=== PATIENT | female | born 1990 | race Caucasian/White ===

== ENCOUNTER → 2018-07-16 | Outpatient (CLI) | payer OTHER ==
[~2018-07-16] MED LIST: FEXO30TA17 PO; FLUT16SP22 NS; PREN1TAB39 PO
--- NOTE | 2018-07-16 11:58 | Diagnostic Imaging Report ---
PROCEDURE: CT sinuses without contrast TECHNIQUE: Multiple contiguous axial images were obtained through the sinuses without the use of intravenous contrast. Coronal and sagittal reformations were then performed. INDICATION: Fibrous dysplasia of sinuses. Comparison is made study of 09/15/2016. FINDINGS: No paranasal sinus air-fluid level is identified. There is rightward deviation of the nasal septum with left annalee bullosa. The intermediate density nodule involving medial aspect of the anterior left ethmoid air cell has not significantly changed. This measures approximately 1.0 x 0.5 cm. There is no significant bone destruction. Globes are intact and there is no evidence of orbital involvement. Paranasal sinuses and mastoid air cells are otherwise unremarkable in appearance. Ostiomeatal complexes are patent. IMPRESSION: Stable nodule involving the left ethmoid bone without evidence of other sinus disease or adverse change. Dictated by: Dictated on workstation # [id number]
== END ==
LOC: RAD 10:05
PROVIDERS: ATTEND Otolaryngology Otolaryngology/Facial Plastic Surgery
DX: M85.08 Fibrous dysplasia (monostotic), other site (principal); M89.9 Disorder of bone, unspecified
CPT/HCPCS: 70486

== ENCOUNTER 2019-05-01 11:16 | Outpatient (CLI) | payer BC ==
[~2019-05-01] VITALS: Ht 157.5 cm; Wt 73.7 kg
[2019-05-01] MEDS ORDERED: MULT-192 PO (11:35)
[2019-05-01] MEDS ORDERED: LORA10TA7 PO (11:35)
[2019-05-01] MEDS ORDERED: FLUT9.9S NS (11:35)
[2019-05-01 11:37] VITALS: BP 126/82
[2019-05-01 12:12] LABS: BASOPHILS % (AUTO) 0 % (0-10); EOSINOPHILS # (AUTO) 0.1 10^3/uL (0.0-0.3); EOSINOPHILS % (AUTO) 1 % (0-10); HEMATOCRIT 40 % (35-52); HEMOGLOBIN 14.1 G/DL (11.5-16.0); LYMPHOCYTES # (AUTO) 2.2 X 10^3 (1.0-4.0); LYMPHOCYTES % (AUTO) 32 % (12-44); MEAN CORPUSCULAR HEMOGLOBIN 30 PG (25-34); MEAN CORPUSCULAR HGB CONC 35 G/DL (32-36); MEAN CORPUSCULAR VOLUME 86 FL (80-99); MEAN PLATELET VOLUME 11.4 FL (7.4-10.4); MONOCYTES # (AUTO) 0.6 X 10^3 (0.0-1.0); MONOCYTES % (AUTO) 9 % (0-12); NEUTROPHILS # (AUTO) 4.1 X 10^3 (1.8-7.8); NEUTROPHILS % (AUTO) 58 % (42-75); PLATELET COUNT 253 10^3/uL (130-400); RED CELL DISTRIBUTION WIDTH 12.7 % (10.0-14.5); WHITE BLOOD COUNT 7.1 10^3/uL (4.3-11.0)
== END 2019-05-01 16:00 | disposition home or self-care (01) ==
LOC: PREOP 11:16
PROVIDERS: ATTEND Obstetrics & Gynecology
DX: Z01.812 Encounter for preprocedural laboratory examination (principal); D06.9 Carcinoma in situ of cervix, unspecified
CPT/HCPCS: 36415; 85025; 86850; 86900; 86901; 87081

== ENCOUNTER 2019-05-06 11:18 | Day surgery (SDC) | payer BC, OTHER ==
[2019-05-06] VITALS (12 sets, daily range): BP systolic 114–132; BP diastolic 60–95
[~2019-05-06] VITALS: Ht 157.5 cm; Wt 73.7 kg
--- NOTE | 2019-05-06 09:50 | Discharge Instructions ---
Discharge Instructions Discharge Medications New, Converted or Re-Newed RX: RX on Chart Patient Instructions Patient Instructions: as directed Return to The Hospital For: as directed Activity & Diet Discharge Diet: No Restrictions Activity as Tolerated: No Orders-Post D/C & Referrals Follow Up Appt: RTC on Wednesday May 08, 2019 at 0930 for staple removal Call to make follow up appt. for patient in 4 weeks. Activity: Rest for 24 hours, than as tolerated. Wound Care: May remove Band-Aid tomorrow. Replace as desired. Keep incisions clean and dry. Wash daily with soap and water. Please call in RX to patient pharmacy. Diet: As tolerated-Clear Liquids only if nauseated. Tomorrow, may shower or tub bathe as desired. No driving for 24 hours, no alcoholic beverages for 24 hours, and nothing per vagina (no tampons, douching, or intercourse) for 8 weeks. Patient to return to the clinic as soon as possible for: Temperature greater than 101F, Severe Pain, Foul discharge from incision or vagina, Excessive Bleeding (more than a period). JESSICA MARTIN MD May 06, 2019 09:50
--- NOTE | 2019-05-06 09:51 | Progress Note-Pre Operative ---
Pre-Operative Progress Note H&P Reviewed The H&P was reviewed, patient examined and no changes noted. Date Seen by Provider: May 06, 2019 Time Seen by Provider: 12:19 Date H&P Reviewed: May 06, 2019 Time H&P Reviewed: 12:19 Pre-Operative Diagnosis: CHIVO II and CHIVO III JESSICA MARTIN MD May 06, 2019 09:51
--- NOTE | 2019-05-06 09:51 | Progress Note-Post Operative ---
Post-Operative Progess Note Surgeon (s)/Black Belt (s) Surgeon JESSICA MARTNI MD Black Belt: Cleopatra Martinez Pre-Operative Diagnosis CHIVO II and CHIVO III Post-Operative Diagnosis same with abnormal appearing appendix and with pathology pending Procedure & Operative Findings Date of Procedure 05/06/19 Procedure Performed/Findings TLH with BS and with laparoscopic appendectomy Anesthesia Type GETA Estimated Blood Loss Estimated blood loss (mL): Minimal Specimens/Packing Specimens Removed Uterus and tubes and appendix Packing: JESSICA Redd MD May 06, 2019 09:51
[~2019-05-06 11:18] MED LIST changes: +DOCU-143 PO; +FLUT9.9S NS; +IBUP-1780 PO; +LORA10TA7 PO; +MULT-192 PO; +OXYC1TAB87 PO
--- OUTSIDE RECORDS SUMMARY | 2019-05-06 11:22 | XMS REPORT ---
Author Author Migration, Doctor Organization [facility] [place] [facility] Address Unknown Phone Unavailable Care Team Providers Care Exterior Interior Specialist Name Role Phone Migration, Doctor Unavailable Unavailable PROBLEMS Type Condition ICD9-CM Code [id number] Code Onset Dates Condition Status SNOMED Code Problem Cervical paraspinal muscle spasm M62.838 Active [id number] ALLERGIES No Information ENCOUNTERS Encounter Location Date Diagnosis [facility] [address] [place] [address] Nov, Left foot pain M79.[address] [address] Sep, [facility] [address] [address] Sep, Coughing R05 and Bronchospasm with bronchitis, acute J20.[address] [address] Jul, Encounter for immunization Z23 [facility] [address] [address] Jun, Sore throat J02.9 ; Acute erythematous tonsillitis J03.90 and Skin eruption R21 [facility] [address] [place] [address] Jun, Acute maxillary sinusitis, recurrence not specified J01.00 and Nausea R11.0 [facility] [address] [place] [address] Jun, Infection of lip K13.0 and Encounter for immunization Z23 [facility] [address] [place] [address] Apr, Sore throat J02.9 and Pharyngitis, unspecified etiology J02.9 [facility] [address] [place] [id number] [place] [address] January, Sore throat J02.9 and Strep pharyngitis J02.0 [place] [address] [address] 10 Dec, 2017 Cervical paraspinal muscle spasm M62.838 [place] [address] [address] Dec, Cervical paraspinal muscle spasm M62.838 [facility] [place] [address] [address] Oct, Frequency of urination R35.0 ; Dysuria R30.0 and Acute right-sided low back pain without sciatica M54.5 [facility] [place] [address] [address] Aug, Pharyngitis due to other organism J02.8 [facility] [place] [address] [address] Apr, Lumbago with sciatica, left side M54.42 [facility] [place] [address] [address] Dec, Sore throat J02.9 and Tonsillitis J03.90 [place] [address] [address] Nov, 2017 Nexplanon removal Z30.46 and control counseling Z30.09 [facility] [place] [address] [address] May, Acute non-recurrent maxillary sinusitis J01.00 [facility] [place] [address] [address] January, Sore throat J02.9 and Fever, unspecified fever cause R50.9 [place] [address] [place] [address] Nov, [place] [address] [address] Nov, Chronic allergic rhinitis J30.9 [facility] [place] [address] [address] Nov, Pharyngitis J02.9 and Acute bacterial sinusitis J01.[address] [address] Oct, Nexplanon insertion Z30.49 [facility] [address] [address] Oct, Upper respiratory tract infection, unspecified type 465.9 ; Cough R05 and Allergic rhinitis J30.[address] [address] Oct, BMI 27.0-27.9,adult Z68.27 and Family history of diabetes mellitus Z83.[address] [address] Oct, Well woman exam Z01.419 ; BMI 27.0-27.9,adult Z68.27 ; Family history of diabetes mellitus Z83.3 ; History of one miscarriage Z87.59 ; Irregular menses N92.6 ; Environmental allergies Z91.09 ; Cough R05 ; Female hirsutism L68.0 ; Acne, unspecified L70.9 ; Encounter for counseling regarding contraception Z30.9 and History of migraine Z86.[address] [address] May, Environmental allergies V15.09 and Pharyngitis [address] [address] Apr, test positive V72.[address] [address] Apr, Positive test V72.42 [facility] [address] [facility] [id number] [address] Apr, Threatened miscarriage in early 640.03 [facility] [address] [facility] [facility] [id number] [place] [address] Apr, Positive test V72.42 [facility] [address] [facility] [facility] [id number], [place] [address] Apr, Positive test V72.42 [facility] [address] [facility] [facility] [id number], [place] [address] Apr, [facility] [address] [facility] [id number], [place] [address] Apr, test positive V72.42 [facility] [address] [address] Dec, [facility] [address] [facility] [id number], [place] [address] Dec, [facility] [address] [id number] [address] Oct, [facility] [address] [id number], [place] [address] Oct, [facility] [address] [id number], [place] [address] Oct, [facility] [address] [id number], [place] [address] Sep, [facility] [address] [facility] [id number], [place] [address] Sep, [facility] [address] [id number], [place] [address] Aug, [facility] [address] [id number], [place] [address] Aug, [facility] [address] [place] [id number] [place] [address] Jun, [facility] [address] [id number] [place] [address] Jun, [facility] [address] [id number] [place] [address] Jun, [facility] [address] [id number] [place] [address] May, [facility] [address] [id number] [place] [address] May, [facility] [address] [id number] [place] [address] Mar, [facility] [address] [id number] [place] [address] Nov, [facility] [address] [id number] [place] [address] Oct, [facility] [address] [id number] [place] [address] 30 Jun, 2012 [facility] [address] [id number] [place] [address] Jun, [facility] [address] [id number] [place] [address] Apr, [facility] [address] [id number] [place] [address] Apr, [facility] [address] [id number] [place] [address] Apr, [facility] [address] [id number] [place] [address] Apr, [facility] [address] [id number] [place] [address] Apr, [facility] [address] [id number] [place] [address] January, [facility] [address] [id number] [place] [address] January, [facility] [address] [id number] [place] [address] January, [facility] [address] [id number] [place] [address] January, [facility] [address] [id number] [place] [address] January, [facility] [address] [id number] [place] [address] Dec, [facility] [address] [id number] [place] [address] Dec, [facility] [address] [id number] [place] [address] Dec, [facility] [address] [id number] [place] [address] Dec, [facility] [address] [id number] [place] [address] Dec, [facility] [address] [id number] [place] [address] Dec, [facility] [address] [id number] [place] [address] Nov, [facility] [place] [facility] [address] [id number] [place] [address] Nov, [facility] [place] [facility] [address] [id number] [place] [address] Nov, [facility] [place] [facility] [address] [id number] [place] [address] Nov, [facility] [place] [facility] [address] [id number] [place] [address] Nov, [facility] [place] [facility] [address] [id number], [place] [address] Nov, [facility] [address], [place] [address] Nov, [facility] [address], [place] [address] Oct, [facility] [address], [place] [address] Sep, [facility] [id number] [place] [address] Sep, [facility] [id number] [place] [address] Sep, [facility] [id number] [place] [address] Aug, [facility] [id number] [place] [address] Jul, [facility] [address], [place] [address] Jul, [facility] [address], [place] [address] Jul, IMMUNIZATIONS No Known Immunizations SOCIAL HISTORY Never Assessed REASON FOR VISIT [facility] PLAN OF CARE VITAL SIGNS MEDICATIONS No Known Medications RESULTS No Results PROCEDURES No Known procedures INSTRUCTIONS MEDICATIONS ADMINISTERED No Known Medications MEDICAL (GENERAL) HISTORY Type Description Date Medical History Family history of diabetes mellitus Medical History Irregular menses Medical History Female hirsutism Medical History History of migraine Medical History Allergic rhinitis Surgical History cholecystectomy age 15 Surgical History bilateral tubal 2017 Hospitalization History Sx
--- OUTSIDE RECORDS SUMMARY | 2019-05-06 11:22 | XMS REPORT ---
Author Author Migration, Doctor Organization [facility] [address] Address Unknown Phone Unavailable Care Team Providers Care [employer] Principal Name Role Phone Migration, Doctor Unavailable Unavailable PROBLEMS Type Condition ICD9-CM Code UUR64-MK Code Onset Dates Condition Status SNOMED Code Problem Cervical paraspinal muscle spasm M62.838 Active [id number] ALLERGIES No Information ENCOUNTERS Encounter Location Date Diagnosis [facility] IN [facility]ARE [address] [place] [address] Nov, Left foot pain M79.[address] [address] Sep, [facility] WALK IN [address] [address] Sep, Coughing R05 and Bronchospasm with bronchitis, acute J20.[address] [address] Jul, Encounter for immunization Z23 [facility] WALK IN [address] [address] Jun, Sore throat J02.9 ; Acute erythematous tonsillitis J03.90 and Skin eruption R21 [facility] [address] [place] [address] Jun, Acute maxillary sinusitis, recurrence not specified J01.00 and Nausea R11.0 [facility] [address] [place] [address] Jun, Infection of lip K13.0 and Encounter for immunization Z23 [facility] [address] [place] [address] Apr, Sore throat J02.9 and Pharyngitis, unspecified etiology J02.9 [facility] [place] [id number] [place] [address] January, Sore throat J02.9 and Strep pharyngitis J02.0 [place] [address] [address] 10 Dec, 2017 Cervical paraspinal muscle spasm M62.838 [place] [address] [address] Dec, Cervical paraspinal muscle spasm M62.838 [facility] WALK [place] [address] [address] Oct, Frequency of urination R35.0 ; Dysuria R30.0 and Acute right-sided low back pain without sciatica M54.5 [facility] WALK IN [place] [address] [address] Aug, Pharyngitis due to other organism J02.8 [facility] WALK [place] [address] [address] Apr, Lumbago with sciatica, left side M54.42 [facility]ALK [facility] [place] [address] [address] Dec, Sore throat J02.9 and Tonsillitis J03.90 [place] [address] [address] Nov, 2017 Nexplanon removal Z30.46 and control counseling Z30.09 [facility] WALK IN [place] [address] [address] May, Acute non-recurrent maxillary sinusitis J01.00 [facility] WALK IN [place] [address] [address] January, Sore throat J02.9 and Fever, unspecified fever cause R50.9 [place] [address] [place] [address] Nov, [place] [address] [address] Nov, Chronic allergic rhinitis J30.9 [facility]ALK [place] [address] [address] Nov, Pharyngitis J02.9 and Acute bacterial sinusitis J01.[address] [address] Oct, Nexplanon insertion Z30.49 [facility] WALK IN [address] [address] Oct, Upper respiratory tract infection, unspecified type 465.9 ; Cough R05 and Allergic rhinitis J30.[address] [address] Oct, BMI 27.0-27.9,adult Z68.27 and Family history of diabetes mellitus Z83.[address] [address] Oct, Well woman exam Z01.419 ; BMI 27.0-27.9,adult Z68.27 ; Family history of diabetes mellitus Z83.3 ; History of one miscarriage Z87.59 ; Irregular menses N92.6 ; Environmental allergies Z91.09 ; Cough R05 ; Female hirsutism L68.0 ; Acne, unspecified L70.9 ; Encounter for counseling regarding contraception Z30.9 and History of migraine Z86.[address] [address] May, Environmental allergies V15.09 and Pharyngitis [address] [address] Apr, test positive V72.[address] [address] Apr, Positive test V72.42 [facility] [address] [facility] [id number] [address] Apr, Threatened miscarriage in early 640.03 [facility] [address] [facility] [id number] [place] [address] Apr, Positive test V72.42 [facility] [address] [facility] [id number] [address] Apr, Positive test V72.42 [facility] [address] [facility] [id number] [address] Apr, [facility] [address] [facility] [id number] [address] Apr, test positive V72.42 [facility] [address] [address] Dec, [facility] [address] [facility] [id number] [place] [address] Dec, [facility] [address] [place] [id number] [address] Oct, [facility] [address] [place] [id number] [address] Oct, [facility] [address] [place] [id number] [address] Oct, [facility] [address] [place] [id number] [address] Sep, [facility] [address] [facility] [id number] [address] Sep, [facility] [address] [place] [id number] [address] Aug, [facility] [address] [place] [id number] [address] Aug, [facility] [address] [place] [id number] [place] [address] Jun, [facility] [address] [id number] [place] [address] Jun, [facility] [address] [id number] [place] [address] Jun, [facility] [address] [id number] [place] [address] May, [facility] [address] [id number] [place] [address] May, [facility] [address] [id number] [place] [address] Mar, [facility] [address] [id number] [place] [address] Nov, [facility] [address] [id number] [place] [address] Oct, [facility] [address] [id number] [place] [address] 30 Jun, 2012 [facility] [address] [id number] [place] [address] Jun, [facility] [address] [id number] [place] [address] Apr, [facility] [address] [id number] [place] [address] Apr, [facility] [address] [id number] [place] [address] Apr, [facility] [address] [id number] [place] [address] Apr, [facility] [address] [id number] [place] [address] Apr, [facility] [address] [id number] [place] [address] January, [facility] [address] [id number] [place] [address] January, [facility] [address] [id number] [place] [address] January, [facility] [address] [id number] [place] [address] January, [facility] [address] [id number] [place] [address] January, [facility] [address] [id number] [place] [address] Dec, [facility] [address] [id number] [place] [address] Dec, [facility] [address] [id number] [place] [address] Dec, [facility] [address] [id number] [place] [address] Dec, [facility] [address] [id number] [place] [address] Dec, [facility] [address] [id number] [place] [address] Dec, [facility] [address] [id number] [place] [address] Nov, [facility] [place] [facility] [address] [id number] [place] [address] Nov, [facility] [place] [facility] [address] [id number] [place] [address] Nov, [facility] [place] [facility] [address] [id number] [place] [address] Nov, [facility] [place] [facility] [address] [id number] [place] [address] Nov, [facility] [place] [facility] [address] [id number] [address] Nov, [facility] [address]65100[place] [address] Nov, [facility] [address]00565100[place] [address] Oct, [facility] [address]65100[place] [address] Sep, [facility] [address] [place] [address] Sep, [facility] [address] [place] [address] Sep, [facility] [address] [place] [address] Aug, [facility] [address] [place] [address] Jul, [facility] [address]00565100[place] [address] Jul, [facility] [address] [address] Jul, IMMUNIZATIONS No Known Immunizations SOCIAL HISTORY Never Assessed REASON FOR VISIT [facility] [place] VITAL SIGNS MEDICATIONS No [...]
--- OUTSIDE RECORDS SUMMARY | 2019-05-06 11:22 | XMS REPORT ---
Author Author Migration, Doctor Organization [facility] Address Unknown Phone Unavailable Care Team Providers Care [employer] Brake Technician Name Role Phone Migration, Doctor Unavailable Unavailable PROBLEMS Type Condition ICD9-CM Code HRE88-WN Code Onset Dates Condition Status SNOMED Code Problem Cervical paraspinal muscle spasm M62.838 Active [id number] ALLERGIES No Information ENCOUNTERS Encounter Location Date Diagnosis [facility] IN [facility]ARE [address] [place] [address] Nov, Left foot pain M79.[address] [address] Sep, [facility] WALK IN [address] [address] Sep, Coughing R05 and Bronchospasm with bronchitis, acute J20.[address] [address] Jul, Encounter for immunization Z23 [facility] WALK IN [address] [address] Jun, Sore throat J02.9 ; Acute erythematous tonsillitis J03.90 and Skin eruption R21 [facility] [address] [place] [address] Jun, Acute maxillary sinusitis, recurrence not specified J01.00 and Nausea R11.0 [facility] [address] [place] [address] Jun, Infection of lip K13.0 and Encounter for immunization Z23 [facility] [address] [place] [address] Apr, Sore throat J02.9 and Pharyngitis, unspecified etiology J02.9 [facility] [address] [place] [id number] [place] [address] January, Sore throat J02.9 and Strep pharyngitis J02.0 [place] [address] [address] 10 Dec, 2017 Cervical paraspinal muscle spasm M62.838 [place] [address] [address] Dec, Cervical paraspinal muscle spasm M62.838 [facility] WALK IN [place] [address] [address] Oct, Frequency of urination R35.0 ; Dysuria R30.0 and Acute right-sided low back pain without sciatica M54.5 [facility] WALK IN [place] [address] [address] Aug, Pharyngitis due to other organism J02.8 [facility] WALK IN [place] [address] [address] Apr, Lumbago with sciatica, left side M54.42 [facility] WALK IN [place] [address] [address] Dec, Sore throat J02.9 and Tonsillitis J03.90 [place] [address] [address] Nov, 2017 Nexplanon removal Z30.46 and control counseling Z30.09 [facility] WALK [facility] [place] [address] [address] May, Acute non-recurrent maxillary sinusitis J01.00 [facility] WALK IN [place] [address] [address] January, Sore throat J02.9 and Fever, unspecified fever cause R50.9 [place] [address] [place] [address] Nov, [place] [address] [address] Nov, Chronic allergic rhinitis J30.9 [facility] WALK [facility] [place] [address] [address] Nov, Pharyngitis J02.9 and Acute bacterial sinusitis J01.[address] [address] Oct, Nexplanon insertion Z30.49 [facility] WALK IN [address] [address] Oct, Upper respiratory tract infection, unspecified type 465.9 ; Cough R05 and Allergic rhinitis J30.[address] [address] Oct, BMI 27.0-27.9,adult Z68.27 and Family history of diabetes mellitus Z83.[address] [address] Oct, Well woman exam Z01.419 ; BMI 27.0-27.9,adult Z68.27 ; Family history of diabetes mellitus Z83.3 ; History of one miscarriage Z87.59 ; Irregular menses N92.6 ; Environmental allergies Z91.09 ; Cough R05 ; Female hirsutism L68.0 ; Acne, unspecified L70.9 ; Encounter for counseling regarding contraception Z30.9 and History of migraine Z86.[address] [address] May, Environmental allergies V15.09 and Pharyngitis [address] [address] Apr, test positive V72.[address] [address] Apr, Positive test V72.42 [facility] [address] [facility] [id number] [address] Apr, Threatened miscarriage in early 640.03 [facility] [address] [facility] [id number] [place] [address] Apr, Positive test V72.42 [facility] [address] [facility] [id number], [place] [address] Apr, Positive test V72.42 [facility] [address] [facility] [id number], [place] [address] Apr, [facility] [address] [facility] [id number], [place] [address] Apr, test positive V72.42 [facility] [address], [place] [address] Dec, [facility] [address] [facility] [id number], [place] [address] Dec, [facility] [address] [place] [id number] [address] Oct, [facility] [address] [place] [id number] [address] Oct, [facility] [address] [place] [id number] [address] Oct, [facility] [address] [place] [id number], [place] [address] Sep, [facility] [address] [facility] [id number], [place] [address] Sep, [facility] [address] [place] [id number], [place] [address] Aug, [facility] [address] [place] [id number] [address] Aug, [facility] [address] [place] [id number] [place] [address] Jun, [facility] [address] [id number] [place] [address] Jun, [facility] [address] [id number] [place] [address] Jun, [facility] [address] [id number] [place] [address] May, [facility] [address] [id number] [place] [address] May, [facility] [address] [id number] [place] [address] Mar, [facility] [address] [id number] [place] [address] Nov, [facility] [address] [id number] [place] [address] Oct, [facility] [address] [id number] [place] [address] 30 Jun, 2012 [facility] [address] [id number] [place] [address] Jun, [facility] [address] [id number] [place] [address] Apr, [facility] [address] [id number] [place] [address] Apr, [facility] [address] [id number] [place] [address] Apr, [facility] [address] [id number] [place] [address] Apr, [facility] [address] [id number] [place] [address] Apr, [facility] [address] [id number] [place] [address] January, [facility] [address] [id number] [place] [address] January, [facility] [address] [id number] [place] [address] January, [facility] [address] [id number] [place] [address] January, [facility] [address] [id number] [place] [address] January, [facility] [address] [id number] [place] [address] Dec, [facility] [address] [id number] [place] [address] Dec, [facility] [address] [id number] [place] [address] Dec, [facility] [address] [id number] [place] [address] Dec, [facility] [address] [id number] [place] [address] Dec, [facility] [address] [id number] [place] [address] Dec, [facility] [address] [id number] [place] [address] Nov, [facility] [place] [facility] [address] [id number] [place] [address] Nov, [facility] [place] [facility] [address] [id number] [place] [address] Nov, [facility] [place] [facility] [address] [id number] [place] [address] Nov, [facility] [place] [facility] [address] [id number] [place] [address] Nov, [facility] [place] [facility] [address] [id number], [place] [address] Nov, [facility] [address], [place] [address] Nov, [facility] [address], [place] [address] Oct, [facility] [address], [place] [address] Sep, [facility] [id number] [place] [address] Sep, [facility] [id number] [place] [address] Sep, [facility] [id number] [place] [address] Aug, [facility] [id number] [place] [address] Jul, [facility] [address], [place] [address] Jul, [facility] [address], [place] [address] Jul, IMMUNIZATIONS No Known Immunizations SOCIAL HISTORY Never Assessed REASON FOR VISIT [facility] [place] OF CARE VITAL SIGNS MEDICATIONS No [...]
--- OUTSIDE RECORDS SUMMARY | 2019-05-06 11:22 | XMS REPORT ---
Author Author Migration, Doctor Organization [facility] Address Unknown Phone Unavailable Care Team Providers Care Twisting Frame Operator Name Role Phone Migration, Doctor Unavailable Unavailable PROBLEMS Type Condition ICD9-CM Code RII19-TQ Code Onset Dates Condition Status SNOMED Code Problem Cervical paraspinal muscle spasm M62.838 Active [id number] ALLERGIES No Information ENCOUNTERS Encounter Location Date Diagnosis [facility] [address] [place] [address] Nov, Left foot pain M79.[address] [address] Sep, [facility] [address] [address] Sep, Coughing R05 and Bronchospasm with bronchitis, acute J20.[address] [address] Jul, Encounter for immunization Z23 [facility] [address] [address] Jun, Sore throat J02.9 ; Acute erythematous tonsillitis J03.90 and Skin eruption R21 [facility] [address] [place] [address] Jun, Acute maxillary sinusitis, recurrence not specified J01.00 and Nausea R11.0 [facility] [address] [place] [address] Jun, Infection of lip K13.0 and Encounter for immunization Z23 [facility] [address] [place] [address] Apr, Sore throat J02.9 and Pharyngitis, unspecified etiology J02.9 [facility] [address] [place] [id number] [place] [address] January, Sore throat J02.9 and Strep pharyngitis J02.0 [place] [address] [address] 10 Dec, 2017 Cervical paraspinal muscle spasm M62.838 [place] [address] [address] Dec, Cervical paraspinal muscle spasm M62.838 [facility] [place] [address] [address] Oct, Frequency of urination R35.0 ; Dysuria R30.0 and Acute right-sided low back pain without sciatica M54.5 [facility] [place] [address] [address] Aug, Pharyngitis due to other organism J02.8 [facility] [place] [address] [address] Apr, Lumbago with sciatica, left side M54.42 [facility] [place] [address] [address] Dec, Sore throat J02.9 and Tonsillitis J03.90 [place] [address] [address] Nov, 2017 Nexplanon removal Z30.46 and control counseling Z30.09 [facility] [place] [address] [address] May, Acute non-recurrent maxillary sinusitis J01.00 [facility] [place] [address] [address] January, Sore throat J02.9 and Fever, unspecified fever cause R50.9 [place] [address] [place] [address] Nov, [place] [address] [address] Nov, Chronic allergic rhinitis J30.9 [facility] [place] [address] [address] Nov, Pharyngitis J02.9 and Acute bacterial sinusitis J01.[address] [address] Oct, Nexplanon insertion Z30.49 [facility] [address] [address] Oct, Upper respiratory tract infection, unspecified type 465.9 ; Cough R05 and Allergic rhinitis J30.[address] [address] Oct, BMI 27.0-27.9,adult Z68.27 and Family history of diabetes mellitus Z83.[address] [address] Oct, Well woman exam Z01.419 ; BMI 27.0-27.9,adult Z68.27 ; Family history of diabetes mellitus Z83.3 ; History of one miscarriage Z87.59 ; Irregular menses N92.6 ; Environmental allergies Z91.09 ; Cough R05 ; Female hirsutism L68.0 ; Acne, unspecified L70.9 ; Encounter for counseling regarding contraception Z30.9 and History of migraine Z86.[address] [address] May, Environmental allergies V15.09 and Pharyngitis [address] [address] Apr, test positive V72.[address] [address] Apr, Positive test V72.42 [facility] [address] [id number], [place] [address] Apr, Threatened miscarriage in early 640.03 [facility] [address] [id number] [place] [address] Apr, Positive test V72.42 [facility] [address] [id number], [place] [address] Apr, Positive test V72.42 [facility] [address] [id number], [place] [address] Apr, [facility] [address] [id number], [place] [address] Apr, test positive V72.42 [facility] [address], [place] [address] Dec, [facility] [address] [id number], [place] [address] Dec, [facility] [address] [id number], [place] [address] Oct, [facility] [address] [place] [address] [id number], [place] [address] Oct, [facility] [address] [place] [id number], [place] [address] Oct, [facility] [address] [place] [id number], [place] [address] Sep, [facility] [address] [id number], [place] [address] Sep, [facility] [address] [place] [id number], [place] [address] Aug, [facility] [address] [place] [id number], [place] [address] Aug, [facility] [address] [place] [id number] [place] [address] Jun, [facility] [address] [id number] [place] [address] Jun, [facility] [address] [id number] [place] [address] Jun, [facility] [address] [id number] [place] [address] May, [facility] [address] [id number] [place] [address] May, [facility] [address] [id number] [place] [address] Mar, [facility] [address] [id number] [place] [address] Nov, [facility] [address] [id number] [place] [address] Oct, [facility] [address] [id number] [place] [address] 30 Jun, 2012 [facility] [address] [id number] [place] [address] Jun, [facility] [address] [id number] [place] [address] Apr, [facility] [address] [id number] [place] [address] Apr, [facility] [address] [id number] [place] [address] Apr, [facility] [address] [id number] [place] [address] Apr, [facility] [address] [id number] [place] [address] Apr, [facility] [address] [id number] [place] [address] January, [facility] [address] [id number] [place] [address] January, [facility] [address] [id number] [place] [address] January, [facility] [address] [id number] [place] [address] January, [facility] [address] [id number] [place] [address] January, [facility] [address] [id number] [place] [address] Dec, [facility] [address] [id number] [place] [address] Dec, [facility] [address] [id number] [place] [address] Dec, [facility] [address] [id number] [place] [address] Dec, [facility] [address] [id number] [place] [address] Dec, [facility] [address] [id number] [place] [address] Dec, [facility] [address] [id number] [place] [address] Nov, [facility] [place] [facility] [address] [id number] [place] [address] Nov, [facility] [place] [facility] [address] [id number] [place] [address] Nov, [facility] [place] [facility] [address] [id number] [place] [address] Nov, [facility] [place] [facility] [address] [id number] [place] [address] Nov, [facility] [place] [facility] [address] [id number], [place] [address] Nov, [facility] [address], [place] [address] Nov, [facility] [address], [place] [address] Oct, [facility] [address], [place] [address] Sep, [facility] [address], [place] [address] Sep, [facility] [address], [place] [address] Sep, [facility] [address], [place] [address] Aug, [facility] [address], [place] [address] Jul, [facility] [address], [place] [address] Jul, [facility] [address] [place] [id number], [place] [address] Jul, IMMUNIZATIONS No Known Immunizations SOCIAL HISTORY Never Assessed REASON FOR VISIT [facility] PLAN OF CARE VITAL SIGNS MEDICATIONS Medication Instructions Dosage Frequency Start Date End Date Duration Status PredniSONE 10 mg 1 tablet by Oral route 2 times per day for 5 day(s) Jun, Active Bactrim DS 800-160 mg 1 tablet by Oral route 2 times per day for 7 day(s) Jun, Active Depo-Provera 150 mg/mL inject 150 mg by intramuscular route every 3 months Sep, Active Flonase 50 mcg/actuation 1 sprays by Nasal route 2 times per day in each nostril May, Active Flagyl 500 mg 1 tablet by Oral route 2 times per day for 7 days Apr, Active RESULTS No Results PROCEDURES No Known procedures INSTRUCTIONS MEDICATIONS ADMINISTERED No Known Medications MEDICAL (GENERAL) HISTORY Type Description Date Medical History Family history of diabetes mellitus Medical History Irregular menses Medical History Female hirsutism Medical History History of migraine Medical History Allergic rhinitis Surgical History cholecystectomy age 15 Surgical History bilateral tubal 2017 Hospitalization History Sx
--- OUTSIDE RECORDS SUMMARY | 2019-05-06 11:23 | XMS REPORT ---
Author Author DRAKE ADHIKARI [facility] Address [address] [place] [address] Phone Unavailable Care Team Providers Care Clinical Support Nurse Name Role Phone DRAKE ADHIKARI Unavailable Unavailable PROBLEMS Type Condition ICD9-CM Code UMN17-SX Code Onset Dates Condition Status SNOMED Code Problem Irregular menses N92.6 Active 41017412 Problem BMI 27.0-27.9,adult Z68.27 Active 571663275 Problem History of one miscarriage Z87.59 Active 447482050 Problem Counseling for control, oral contraceptives Z30.9 Active 635484755 Problem Anxiety state, unspecified F41.1 Active 156961356 Problem Otalgia, unspecified laterality H92.09 Active 99671124 Problem Female hirsutism L68.0 Active 83659899 Problem Cervical paraspinal muscle spasm M62.838 Active 189170549 Problem Lumbago with sciatica, left side M54.42 Active 042036034 Problem Family history of diabetes mellitus Z83.3 Active 612788616 Problem History of migraine Z86.69 Active 174678482 Problem Nexplanon insertion Z30.49 Active 511710532 Problem Allergic rhinitis J30.9 Active 83031605 ALLERGIES No Known Allergies ENCOUNTERS Encounter Location Date Diagnosis [facility] [address] [place] [address] 07 Jun, 2018 Sore throat J02.9 ; Acute erythematous tonsillitis J03.90 and Skin eruption R21 [facility] [address] [place] [id number] [place] [address] Jun, Acute maxillary sinusitis, recurrence not specified J01.00 and Nausea R11.0 [facility] [address] [place] [address] Jun, Infection of lip K13.0 and Encounter for immunization Z23 [facility] [address] [place] [id number] [place] [address] Apr, Sore throat J02.9 and Pharyngitis, unspecified etiology J02.9 [facility] [place] [address] [address] January, Sore throat J02.9 and Strep pharyngitis J02.0 [place] [address] [address] Dec, Cervical paraspinal muscle spasm M62.838 [place] [address] [address] Dec, Cervical paraspinal muscle spasm M62.838 [facility] [place] [address] [address] Oct, Frequency of urination R35.0 ; Dysuria R30.0 and Acute right-sided low back pain without sciatica M54.5 [facility] [place] [address] [address] Aug, Pharyngitis due to other organism J02.8 [facility] [place] [address] [address] Apr, Lumbago with sciatica, left side M54.42 [facility] [place] [address] [address] Dec, Sore throat J02.9 and Tonsillitis J03.90 [place] [address] [address] Nov, 2017 Nexplanon removal Z30.46 and control counseling Z30.09 [facility] [place] [address] [address] May, Acute non-recurrent maxillary sinusitis J01.00 [facility] [place] [address] [address] January, Sore throat J02.9 and Fever, unspecified fever cause R50.9 [place] [address] [address] Nov, [place] [address] [address] Nov, Chronic allergic rhinitis J30.9 [facility] [address] [address] Nov, Pharyngitis J02.9 and Acute bacterial sinusitis J01.[address] [address] Oct, Nexplanon insertion Z30.[address] [address] Oct, Upper respiratory tract infection, unspecified type 465.9 ; Cough R05 and Allergic rhinitis J30.[address] [address] Oct, BMI 27.0-27.9,adult Z68.27 and Family history of diabetes mellitus Z83.[address] [address] Oct, Well woman exam Z01.419 ; BMI 27.0-27.9,adult Z68.27 ; Family history of diabetes mellitus Z83.3 ; History of one miscarriage Z87.59 ; Irregular menses N92.6 ; Environmental allergies Z91.09 ; Cough R05 ; Female hirsutism L68.0 ; Acne, unspecified L70.9 ; Encounter for counseling regarding contraception Z30.9 and History of migraine Z86.69 [place] [address] [address] May, Environmental allergies V15.09 and Pharyngitis [address] [address] Apr, test positive V72.42 [facility] [address], [place] [address] Apr, Positive test V72.42 [facility] [address] [facility] [id number], [place] [address] Apr, Threatened miscarriage in early 640.03 [facility] [address], [place] [address] Apr, Positive test V72.42 [facility] [address] [facility] [id number], [place] [address] Apr, Positive test V72.42 [facility] [address] [facility] [id number], [place] [address] Apr, [facility] [address], [place] [address] Apr, test positive V72.42 [facility] [address], [place] [address] Dec, [facility] [address], [place] [address] Dec, [facility] [address], [place] [address] Oct, [facility] [address]65[place], [place] [address] Oct, [facility] [address], [place] [address] Oct, [facility] [address], [place] [address] Sep, [facility] [address] [place] [id number], [place] [address] Sep, [facility] [address], [place] [address] Aug, [facility] [place] [facility] [address] [id number] [place] [address] Aug, [facility] [address] [id number] [place] [address] Jun, [facility] [place] [facility] [address] [id number] [place] [address] Jun, [facility] [address] [id number] [place] [address] Jun, [facility] [address] [id number] [place] [address] May, [facility] [address] [id number] [place] [address] May, [facility] [address] [id number] [place] [address] Mar, [facility] [address] [id number] [place] [address] Nov, [facility] [address] [id number] [place] [address] Oct, [facility] [address] [id number] [place] [address] 30 Jun, 2012 [facility] [address] [id number] [place] [address] Jun, [facility] [address] [id number] [place] [address] Apr, [facility] [place] [facility] [address] [id number] [place] [address] Apr, [facility] [place] [facility] [address] [id number] [place] [address] Apr, [facility] [place] [facility] [address] [id number] [place] [address] Apr, [facility] [place] [facility] [address] [id number] [place] [address] Apr, [facility] [address] [id number] [place] [address] January, [facility] [place] [facility] [address] [id number] [place] [address] January, [facility] [place] [facility] [address] [id number] [place] [address] January, [facility] [place] [facility] [address] [id number] [place] [address] January, [facility] [place] [facility] [address] [id number] [place] [address] January, [facility] [place] [facility] [address] [id number] [place] [address] Dec, [facility] [place] [facility] [address] [id number] [place] [address] Dec, [facility] [place] [facility] [address] [id number] [place] [address] Dec, [facility] [place] [facility] [address] [id number] [place] [address] Dec, [facility] [place] [facility] [address] [id number] [place] [address] Dec, [facility] [place] [facility] [address] [id number] [place] [address] Dec, [facility] [place] [facility] [address] [id number] [place] [address] Nov, [facility] [place] [facility] [address] [id number] [place] [address] Nov, [facility] [place] [facility] [address] [id number] [place] [address] Nov, [facility] [place] [facility] [address] [id number] [place] [address] Nov, [facility] [place] [facility] [address] [id number], [place] [address] Nov, [facility] [address], [place] [address] Nov, [facility] [address], [place] [address] Nov, [facility] [address], [place] [address] Oct, [facility] [address], [place] [address] Sep, [facility] [address] [place] [address] Sep, [facility] [address] [place] [address] Sep, [facility] [address] [place] [address] Aug, [facility] [address], [place] [address] Jul, [facility] [address], [place] [address] Jul, [facility] [address] [id number], [place] [address] Jul, IMMUNIZATIONS Vaccine Route Administration Date Status TDAP (BOOSTRIX) IM Intramuscular Jun 06, 2018 Administered SOCIAL HISTORY Never Assessed REASON FOR VISIT lip infection started swelling yesterday JStrasserRN PLAN OF CARE Activity Details Follow Up prn Reason: VITAL SIGNS Height 61 in 2018-06-06 Weight 163.4 lbs 2018-06-06 Temperature 97.9 degrees Fahrenheit 2018-06-06 Heart Rate 56 bpm 2018-06-06 Respiratory Rate 18 2018-06-06 BMI 30.87 kg/m2 2018-06-06 Blood pressure systolic 100 mmHg 2018-06-06 Blood pressure diastolic 70 mmHg 2018-06-06 MEDICATIONS Medication Instructions Dosage Frequency Start Date End Date Duration Status Symbicort 160-4.5 MCG/ACT Inhalation Twice a day 2 puffs 12h Active Zyrtec Allergy 10 MG Orally Once a day 1 tablet as needed 24h Active Bactrim DS 800-160 MG Orally Twice a day 1 tablet 12h 05 Jun, 2018 Jun, 10 day(s) Active RESULTS No Results PROCEDURES Procedure Date Ordered Result Body Site TDAP (BOOSTRIX) Jun 06, 2018 SINGLE IMMUNIZATION ADMIN Jun 06, 2018 INSTRUCTIONS MEDICATIONS ADMINISTERED No Known Medications MEDICAL (GENERAL) HISTORY Type Description Date Surgical History cholecystectomy age 15 Surgical History bilateral tubal 2017 Hospitalization History Sx
--- OUTSIDE RECORDS SUMMARY | 2019-05-06 11:23 | XMS REPORT ---
Author Author Migration, Doctor Organization [facility] Address Unknown Phone Unavailable Care Team Providers Care Bilingual Inside Sales Representative Name Role Phone Migration, Doctor Unavailable Unavailable PROBLEMS Type Condition ICD9-CM Code [id number] Code Onset Dates Condition Status SNOMED Code Problem Cervical paraspinal muscle spasm M62.838 Active [id number] ALLERGIES No Information ENCOUNTERS Encounter Location Date Diagnosis [facility] [address] [place] [address] Nov, Left foot pain M79.[address] [address] Sep, [facility] WALK IN [address] [address] Sep, Coughing R05 and Bronchospasm with bronchitis, acute J20.[address] [address] Jul, Encounter for immunization Z23 [facility] WALK IN [address] [address] Jun, Sore throat J02.9 ; Acute erythematous tonsillitis J03.90 and Skin eruption R21 [facility] [address] [place] [address] Jun, Acute maxillary sinusitis, recurrence not specified J01.00 and Nausea R11.0 [facility] [address] [place] [address] Jun, Infection of lip K13.0 and Encounter for immunization Z23 [facility] [address] [place] [address] Apr, Sore throat J02.9 and Pharyngitis, unspecified etiology J02.9 [facility] [place] [id number] [place] [address] January, Sore throat J02.9 and Strep pharyngitis J02.0 [place] [address] [address] 10 Dec, 2017 Cervical paraspinal muscle spasm M62.838 [place] [address] [address] Dec, Cervical paraspinal muscle spasm M62.838 [facility] WALK IN [place] [address] [address] Oct, Frequency of urination R35.0 ; Dysuria R30.0 and Acute right-sided low back pain without sciatica M54.5 [facility]ALK IN [place] [address] [address] Aug, Pharyngitis due to other organism J02.8 [facility]ALK [facility] [place] [address] [address] Apr, Lumbago with sciatica, left side M54.42 [facility] IN [place] [address] [address] Dec, Sore throat J02.9 and Tonsillitis J03.90 [place] [address] [address] Nov, 2017 Nexplanon removal Z30.46 and control counseling Z30.09 [facility]ALK IN [place] [address] [address] May, Acute non-recurrent maxillary sinusitis J01.00 [facility]ALK IN [place] [address] [address] January, Sore throat J02.9 and Fever, unspecified fever cause R50.9 [place] [address] [place] [address] Nov, [place] [address] [address] Nov, Chronic allergic rhinitis J30.9 [facility]ALK [facility] [place] [address] [address] Nov, Pharyngitis J02.9 and Acute bacterial sinusitis J01.[address] [address] Oct, Nexplanon insertion Z30.49 [facility] [address] [address] Oct, Upper respiratory tract infection, unspecified type 465.9 ; Cough R05 and Allergic rhinitis J30.[address] [address] Oct, BMI 27.0-27.9,adult Z68.27 and Family history of diabetes mellitus Z83.[address] [address] Oct, Well woman exam Z01.419 ; BMI 27.0-27.9,adult Z68.27 ; Family history of diabetes mellitus Z83.3 ; History of one miscarriage Z87.59 ; Irregular menses N92.6 ; Environmental allergies Z91.09 ; Cough R05 ; Female hirsutism L68.0 ; Acne, unspecified L70.9 ; Encounter for counseling regarding contraception Z30.9 and History of migraine Z86.[address] [address] May, Environmental allergies V15.09 and Pharyngitis [address] [address] Apr, test positive V72.[address] [address] Apr, Positive test V72.42 [facility] [address] [facility] [address] [id number] [address] Apr, Threatened miscarriage in early 640.03 [facility] [address] [facility] [address] [id number] [place] [address] Apr, Positive test V72.42 [facility] [address] [facility] [address] [id number] [address] Apr, Positive test V72.42 [facility] [address] [facility] [address] [id number] [address] Apr, [facility] [address] [facility] [address] [id number] [address] Apr, test positive V72.42 [facility] [address] [address] Dec, [facility] [address] [facility] [address] [id number], [place] [address] Dec, [facility] [address] [id number] [address] Oct, [facility] [address] [place] [id number] [address] Oct, [facility] [address] [id number] [address] Oct, [facility] [address] [place] [id number] [address] Sep, [facility] [address] [facility] [address] [id number] [address] Sep, [facility] [address] [place] [id number] [address] Aug, [facility] [address] [place] [id number] [address] Aug, [facility] [address] [place] [id number] [place] [address] Jun, [facility] [address] [id number] [place] [address] Jun, [facility] [address] [id number] [place] [address] Jun, [facility] [address] [id number] [place] [address] May, [facility] [address] [id number] [place] [address] May, [facility] [address] [id number] [place] [address] Mar, [facility] [address] [id number] [place] [address] Nov, [facility] [address] [id number] [place] [address] Oct, [facility] [address] [id number] [place] [address] 30 Jun, 2012 [facility] [address] [id number] [place] [address] Jun, [facility] [address] [id number] [place] [address] Apr, [facility] [address] [id number] [place] [address] Apr, [facility] [address] [id number] [place] [address] Apr, [facility] [address] [id number] [place] [address] Apr, [facility] [address] [id number] [place] [address] Apr, [facility] [address] [id number] [place] [address] January, [facility] [address] [id number] [place] [address] January, [facility] [address] [id number] [place] [address] January, [facility] [address] [id number] [place] [address] January, [facility] [address] [id number] [place] [address] January, [facility] [address] [id number] [place] [address] Dec, [facility] [address] [id number] [place] [address] Dec, [facility] [address] [id number] [place] [address] Dec, [facility] [address] [id number] [place] [address] Dec, [facility] [address] [id number] [place] [address] Dec, [facility] [address] [id number] [place] [address] Dec, [facility] [address] [id number] [place] [address] Nov, [facility] [place] [facility] [address] [id number] [place] [address] Nov, [facility] [place] [facility] [address] [id number] [place] [address] Nov, [facility] [place] [facility] [address] [id number] [place] [address] Nov, [facility] [place] [facility] [address] [id number] [place] [address] Nov, [facility] [place] [facility] [address] [id number], [place] [address] Nov, [facility] [address], [place] [address] Nov, [facility] [address]65[address], [place] [address] Oct, [facility] [address], [place] [address] Sep, [facility] [address], [place] [address] Sep, [facility] [address], [place] [address] Sep, [facility] [address], [place] [address] Aug, [facility] [address], [place] [address] Jul, [facility] [address], [place] [address] Jul, [facility] [address] [id number] [address] Jul, IMMUNIZATIONS No Known Immunizations SOCIAL HISTORY Never Assessed REASON FOR VISIT [facility] [place] PLAN OF CARE VITAL SIGNS MEDICATIONS No Known Medications RESULTS Name Result Date Reference Range PAP SMEAR 2012-04-20 [facility]EWARD/STEWARDESS THIRD CYTOLOGY REPORT PAP RESULT LGSIL PROCEDURES No Known procedures INSTRUCTIONS MEDICATIONS ADMINISTERED No Known Medications MEDICAL (GENERAL) HISTORY Type Description Date Medical History Family history of diabetes mellitus Medical History Irregular menses Medical History Female hirsutism Medical History History of migraine Medical History Allergic rhinitis Surgical History cholecystectomy age 15 Surgical History bilateral tubal 2017 Hospitalization History Sx
--- OUTSIDE RECORDS SUMMARY | 2019-05-06 11:23 | XMS REPORT ---
Author Author Migration, Doctor Organization [facility] Address Unknown Phone Unavailable Care Team Providers Care Purse Seiner Name Role Phone Migration, Doctor Unavailable Unavailable PROBLEMS Type Condition ICD9-CM Code [id number] Code Onset Dates Condition Status SNOMED Code Problem Cervical paraspinal muscle spasm M62.838 Active [id number] ALLERGIES No Information ENCOUNTERS Encounter Location Date Diagnosis [facility] [address] [place] [address] Nov, Left foot pain M79.[address] [address] Sep, [facility] [address] [address] Sep, Coughing R05 and Bronchospasm with bronchitis, acute J20.[address] [address] Jul, Encounter for immunization Z23 [facility] [address] [address] Jun, Sore throat J02.9 ; Acute erythematous tonsillitis J03.90 and Skin eruption R21 [facility] [address] [place] [address] Jun, Acute maxillary sinusitis, recurrence not specified J01.00 and Nausea R11.0 [facility] [address] [place] [address] Jun, Infection of lip K13.0 and Encounter for immunization Z23 [facility] [address] [place] [address] Apr, Sore throat J02.9 and Pharyngitis, unspecified etiology J02.9 [facility] [address] [place] [id number] [place] [address] January, Sore throat J02.9 and Strep pharyngitis J02.0 [place] [address] [address] 10 Dec, 2017 Cervical paraspinal muscle spasm M62.838 [place] [address] [address] Dec, Cervical paraspinal muscle spasm M62.838 [facility]ALK [facility] [place] [address] [address] Oct, Frequency of urination R35.0 ; Dysuria R30.0 and Acute right-sided low back pain without sciatica M54.5 [facility]ALK [facility] [place] [address] [address] Aug, Pharyngitis due to other organism J02.8 [facility] [place] [address] [address] Apr, Lumbago with sciatica, left side M54.42 [facility] [place] [address] [address] Dec, Sore throat J02.9 and Tonsillitis J03.90 [place] [address] [address] Nov, 2017 Nexplanon removal Z30.46 and control counseling Z30.09 [facility] [place] [address] [address] May, Acute non-recurrent maxillary sinusitis J01.00 [facility] [place] [address] [address] January, Sore throat J02.9 and Fever, unspecified fever cause R50.9 [place] [address] [place] [address] Nov, [place] [address] [address] Nov, Chronic allergic rhinitis J30.9 [facility] [place] [address] [address] Nov, Pharyngitis J02.9 and Acute bacterial sinusitis J01.[address] [address] Oct, Nexplanon insertion Z30.49 [facility] [address] [address] Oct, Upper respiratory tract infection, unspecified type 465.9 ; Cough R05 and Allergic rhinitis J30.[address] [address] Oct, BMI 27.0-27.9,adult Z68.27 and Family history of diabetes mellitus Z83.[address] [address] Oct, Well woman exam Z01.419 ; BMI 27.0-27.9,adult Z68.27 ; Family history of diabetes mellitus Z83.3 ; History of one miscarriage Z87.59 ; Irregular menses N92.6 ; Environmental allergies Z91.09 ; Cough R05 ; Female hirsutism L68.0 ; Acne, unspecified L70.9 ; Encounter for counseling regarding contraception Z30.9 and History of migraine Z86.[address] [address] May, Environmental allergies V15.09 and Pharyngitis [address] [address] Apr, test positive V72.[address] [address] Apr, Positive test V72.42 [facility] [address] [facility] [id number], [place] [address] Apr, Threatened miscarriage in early 640.03 [facility] [address] [facility] [id number] [place] [address] Apr, Positive test V72.42 [facility] [address] [facility] [id number], [place] [address] Apr, Positive test V72.42 [facility] [address] [facility] [id number], [place] [address] Apr, [facility] [address] [facility] [id number], [place] [address] Apr, test positive V72.42 [facility] [address], [place] [address] Dec, [facility] [address] [facility] [id number], [place] [address] Dec, [facility] [address] [place] [id number], [place] [address] Oct, [facility] [address] [place] [id number], [place] [address] Oct, [facility] [address] [place] [id number], [place] [address] Oct, [facility] [address] [place] [id number], [place] [address] Sep, [facility] [address] [facility] [id number], [place] [address] Sep, [facility] [address] [place] [id number], [place] [address] Aug, [facility] [address] [place] [id number], [place] [address] Aug, [facility] [address] [place] [id number] [place] [address] Jun, [facility] [address] [id number] [place] [address] Jun, [facility] [address] [id number] [place] [address] Jun, [facility] [address] [id number] [place] [address] May, [facility] [address] [id number] [place] [address] May, [facility] [address] [id number] [place] [address] Mar, [facility] [address] [id number] [place] [address] Nov, [facility] [address] [id number] [place] [address] Oct, [facility] [address] [id number] [place] [address] 30 Jun, 2012 [facility] [address] [id number] [place] [address] Jun, [facility] [address] [id number] [place] [address] Apr, [facility] [address] [id number] [place] [address] Apr, [facility] [address] [id number] [place] [address] Apr, [facility] [address] [id number] [place] [address] Apr, [facility] [address] [id number] [place] [address] Apr, [facility] [address] [id number] [place] [address] January, [facility] [address] [id number] [place] [address] January, [facility] [address] [id number] [place] [address] January, [facility] [address] [id number] [place] [address] January, [facility] [address] [id number] [place] [address] January, [facility] [address] [id number] [place] [address] Dec, [facility] [address] [id number] [place] [address] Dec, [facility] [address] [id number] [place] [address] Dec, [facility] [address] [id number] [place] [address] Dec, [facility] [address] [id number] [place] [address] Dec, [facility] [address] [id number] [place] [address] Dec, [facility] [address] [id number] [place] [address] Nov, [facility] [place] [facility] [address] [id number] [place] [address] Nov, [facility] [place] [facility] [address] [id number] [place] [address] Nov, [facility] [place] [facility] [address] [id number] [place] [address] Nov, [facility] [place] [facility] [address] [id number] [place] [address] Nov, [facility] [place] [facility] [address] [id number], [place] [address] Nov, [facility] [address] [id number], [place] [address] Nov, [facility] [address] [place] [address] [id number], [place] [address] Oct, [facility] [address] [id number], [place] [address] Sep, [facility] [address], [place] [address] Sep, [facility] [address], [place] [address] Sep, [facility] [address], [place] [address] Aug, [facility] [address], [place] [address] Jul, [facility] [address] [id number], [place] [address] Jul, [facility] [address] [address] [id number], [place] [address] Jul, IMMUNIZATIONS No Known Immunizations SOCIAL HISTORY Never Assessed REASON FOR VISIT [facility] [place] VITAL SIGNS MEDICATIONS No Known Medications RESULTS Name Result Date Reference Range CULTURE UROGENITAL 2012-04-19 [facility] CULTURE FOOTNOTE PAP SMEAR 2012-04-19 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
--- OUTSIDE RECORDS SUMMARY | 2019-05-06 11:23 | XMS REPORT ---
Author Author Migration, Doctor Organization [facility] Address Unknown Phone Unavailable Care Team Providers Care Taxi Servicer Name Role Phone Migration, Doctor Unavailable Unavailable PROBLEMS Type Condition ICD9-CM Code OEM59-RI Code Onset Dates Condition Status SNOMED Code Problem Cervical paraspinal muscle spasm M62.838 Active [id number] ALLERGIES No Information ENCOUNTERS Encounter Location Date Diagnosis [facility] [address] [place] [address] Nov, Left foot pain M79.[address] [address] Sep, [facility] [address] [address] Sep, Coughing R05 and Bronchospasm with bronchitis, acute J20.[address] [address] Jul, Encounter for immunization Z23 [facility] [address] [address] Jun, Sore throat J02.9 ; Acute erythematous tonsillitis J03.90 and Skin eruption R21 [facility] [address] [place] [address] Jun, Acute maxillary sinusitis, recurrence not specified J01.00 and Nausea R11.0 [facility] [address] [place] [address] Jun, Infection of lip K13.0 and Encounter for immunization Z23 [facility] [address] [place] [address] Apr, Sore throat J02.9 and Pharyngitis, unspecified etiology J02.9 [facility] [address] [place] [id number] [place] [address] January, Sore throat J02.9 and Strep pharyngitis J02.0 [place] [address] [address] 10 Dec, 2017 Cervical paraspinal muscle spasm M62.838 [place] [address] [address] Dec, Cervical paraspinal muscle spasm M62.838 [facility] [place] [address] [address] Oct, Frequency of urination R35.0 ; Dysuria R30.0 and Acute right-sided low back pain without sciatica M54.5 [facility] [place] [address] [address] Aug, Pharyngitis due to other organism J02.8 [facility] [place] [address] [address] Apr, Lumbago with sciatica, left side M54.42 [facility] [place] [address] [address] Dec, Sore throat J02.9 and Tonsillitis J03.90 [place] [address] [address] Nov, 2017 Nexplanon removal Z30.46 and control counseling Z30.09 [facility] [place] [address] [address] May, Acute non-recurrent maxillary sinusitis J01.00 [facility] [place] [address] [address] January, Sore throat J02.9 and Fever, unspecified fever cause R50.9 [place] [address] [place] [address] Nov, [place] [address] [address] Nov, Chronic allergic rhinitis J30.9 [facility] [place] [address] [address] Nov, Pharyngitis J02.9 and Acute bacterial sinusitis J01.[address] [address] Oct, Nexplanon insertion Z30.49 [facility] [address] [address] Oct, Upper respiratory tract infection, unspecified type 465.9 ; Cough R05 and Allergic rhinitis J30.[address] [address] Oct, BMI 27.0-27.9,adult Z68.27 and Family history of diabetes mellitus Z83.[address] [address] Oct, Well woman exam Z01.419 ; BMI 27.0-27.9,adult Z68.27 ; Family history of diabetes mellitus Z83.3 ; History of one miscarriage Z87.59 ; Irregular menses N92.6 ; Environmental allergies Z91.09 ; Cough R05 ; Female hirsutism L68.0 ; Acne, unspecified L70.9 ; Encounter for counseling regarding contraception Z30.9 and History of migraine Z86.[address] [address] May, Environmental allergies V15.09 and Pharyngitis [address] [address] Apr, test positive V72.[address] [address] Apr, Positive test V72.42 [facility] [address] [facility] [id number] [place] [address] Apr, Threatened miscarriage in early 640.03 [facility] [address] [facility] [id number] [place] [address] Apr, Positive test V72.42 [facility] [address] [facility] [id number] [place] [address] Apr, Positive test V72.42 [facility] [address] [facility] [id number] [place] [address] Apr, [facility] [address] [facility] [id number] [place] [address] Apr, test positive V72.42 [facility] [address] [address] Dec, [facility] [address] [facility] [id number] [place] [address] Dec, [facility] [address] [place] [id number] [address] Oct, [facility] [address] [place] [id number] [address] Oct, [facility] [address] [place] [id number] [address] Oct, [facility] [address] [place] [id number] [address] Sep, [facility] [address] [facility] [id number] [place] [address] Sep, [facility] [address] [place] [id number] [address] Aug, [facility] [address] [place] [id number] [address] Aug, [facility] [address] [place] [id number] [place] [address] Jun, [facility] [address] [id number] [place] [address] Jun, [facility] [address] [id number] [place] [address] Jun, [facility] [address] [id number] [place] [address] May, [facility] [address] [id number] [place] [address] May, [facility] [address] [id number] [place] [address] Mar, [facility] [address] [id number] [place] [address] Nov, [facility] [address] [id number] [place] [address] Oct, [facility] [address] [id number] [place] [address] 30 Jun, 2012 [facility] [address] [id number] [place] [address] Jun, [facility] [address] [id number] [place] [address] Apr, [facility] [address] [id number] [place] [address] Apr, [facility] [address] [id number] [place] [address] Apr, [facility] [address] [id number] [place] [address] Apr, [facility] [address] [id number] [place] [address] Apr, [facility] [address] [id number] [place] [address] January, [facility] [address] [id number] [place] [address] January, [facility] [address] [id number] [place] [address] January, [facility] [address] [id number] [place] [address] January, [facility] [address] [id number] [place] [address] January, [facility] [address] [id number] [place] [address] Dec, [facility] [address] [id number] [place] [address] Dec, [facility] [address] [id number] [place] [address] Dec, [facility] [address] [id number] [place] [address] Dec, [facility] [address] [id number] [place] [address] Dec, [facility] [address] [id number] [place] [address] Dec, [facility] [address] [id number] [place] [address] Nov, [facility] [place] [facility] [address] [id number] [place] [address] Nov, [facility] [place] [facility] [address] [id number] [place] [address] Nov, [facility] [place] [facility] [address] [id number] [place] [address] Nov, [facility] [place] [facility] [address] [id number] [place] [address] Nov, [facility] [place] [facility] [address] [id number] [place] [address] Nov, [facility] [address] [address] Nov, [facility] [address] [address] Oct, [facility] [address] [address] Sep, [facility] [address] [place] [address] Sep, [facility] [address] [place] [address] Sep, [facility] [address] [place] [address] Aug, [facility] [address] [place] [address] Jul, [facility] [address] [address] Jul, [facility] [address] [address] Jul, IMMUNIZATIONS No Known Immunizations SOCIAL HISTORY Never Assessed REASON FOR VISIT [facility] PLAN OF CARE VITAL SIGNS MEDICATIONS No [...]
--- OUTSIDE RECORDS SUMMARY | 2019-05-06 11:23 | XMS REPORT ---
Author Author Migration, Doctor Organization [facility] [place] [facility] Address Unknown Phone Unavailable Care Team Providers Care Crisis Intervention Counselor Name Role Phone Migration, Doctor Unavailable Unavailable PROBLEMS Type Condition ICD9-CM Code NNK32-JU Code Onset Dates Condition Status SNOMED Code Problem Cervical paraspinal muscle spasm M62.838 Active [id number] ALLERGIES No Information ENCOUNTERS Encounter Location Date Diagnosis [facility] [address] [place] [address] Nov, Left foot pain M79.[address] [address] Sep, [facility] [address] [address] Sep, Coughing R05 and Bronchospasm with bronchitis, acute J20.[address] [address] Jul, Encounter for immunization Z23 [facility] [address] [address] Jun, Sore throat J02.9 ; Acute erythematous tonsillitis J03.90 and Skin eruption R21 [facility] [address] [place] [address] Jun, Acute maxillary sinusitis, recurrence not specified J01.00 and Nausea R11.0 [facility] [address] [place] [address] Jun, Infection of lip K13.0 and Encounter for immunization Z23 [facility] [address] [place] [address] Apr, Sore throat J02.9 and Pharyngitis, unspecified etiology J02.9 [facility] [address] [place] [id number] [place] [address] January, Sore throat J02.9 and Strep pharyngitis J02.0 [place] [address] [address] 10 Dec, 2017 Cervical paraspinal muscle spasm M62.838 [place] [address] [address] Dec, Cervical paraspinal muscle spasm M62.838 [facility] [place] [address] [address] Oct, Frequency of urination R35.0 ; Dysuria R30.0 and Acute right-sided low back pain without sciatica M54.5 [facility] [place] [address] [address] Aug, Pharyngitis due to other organism J02.8 [facility] [place] [address] [address] Apr, Lumbago with sciatica, left side M54.42 [facility] [place] [address] [address] Dec, Sore throat J02.9 and Tonsillitis J03.90 [place] [address] [address] Nov, 2017 Nexplanon removal Z30.46 and control counseling Z30.09 [facility] [place] [address] [address] May, Acute non-recurrent maxillary sinusitis J01.00 [facility] [place] [address] [address] January, Sore throat J02.9 and Fever, unspecified fever cause R50.9 [place] [address] [place] [address] Nov, [place] [address] [address] Nov, Chronic allergic rhinitis J30.9 [facility] [place] [address] [address] Nov, Pharyngitis J02.9 and Acute bacterial sinusitis J01.[address] [address] Oct, Nexplanon insertion Z30.49 [facility] [address] [address] Oct, Upper respiratory tract infection, unspecified type 465.9 ; Cough R05 and Allergic rhinitis J30.[address] [address] Oct, BMI 27.0-27.9,adult Z68.27 and Family history of diabetes mellitus Z83.[address] [address] Oct, Well woman exam Z01.419 ; BMI 27.0-27.9,adult Z68.27 ; Family history of diabetes mellitus Z83.3 ; History of one miscarriage Z87.59 ; Irregular menses N92.6 ; Environmental allergies Z91.09 ; Cough R05 ; Female hirsutism L68.0 ; Acne, unspecified L70.9 ; Encounter for counseling regarding contraception Z30.9 and History of migraine Z86.[address] [address] May, Environmental allergies V15.09 and Pharyngitis [address] [address] Apr, test positive V72.[address] [address] Apr, Positive test V72.42 [facility] [address] [facility] [id number], [place] [address] Apr, Threatened miscarriage in early 640.03 [facility] [address] [facility] [id number] [place] [address] Apr, Positive test V72.42 [facility] [address] [facility] [id number], [place] [address] Apr, Positive test V72.42 [facility] [address] [facility] [id number], [place] [address] Apr, [facility] [address] [facility] [id number], [place] [address] Apr, test positive V72.42 [facility] [address], [place] [address] Dec, [facility] [address] [facility] [id number], [place] [address] Dec, [facility] [address] [place] [id number] [address] Oct, [facility] [address] [place] [id number], [place] [address] Oct, [facility] [address] [place] [id number] [address] Oct, [facility] [address] [place] [id number], [place] [address] Sep, [facility] [address] [facility] [id number], [place] [address] Sep, [facility] [address] [place] [id number], [place] [address] Aug, [facility] [address] [place] [id number] [address] Aug, [facility] [address] [place] [id number] [address] Jun, [facility] [address] [id number] [place] [address] Jun, [facility] [address] [id number] [place] [address] Jun, [facility] [address] [id number] [place] [address] May, [facility] [address] [id number] [place] [address] May, [facility] [address] [id number] [place] [address] Mar, [facility] [address] [id number] [place] [address] Nov, [facility] [address] [id number] [place] [address] Oct, [facility] [address] [id number] [place] [address] 30 Jun, 2012 [facility] [address] [id number] [place] [address] Jun, [facility] [address] [id number] [place] [address] Apr, [facility] [address] [id number] [place] [address] Apr, [facility] [address] [id number] [place] [address] Apr, [facility] [address] [id number] [place] [address] Apr, [facility] [address] [id number] [place] [address] Apr, [facility] [address] [id number] [place] [address] January, [facility] [address] [id number] [place] [address] January, [facility] [address] [id number] [place] [address] January, [facility] [address] [id number] [place] [address] January, [facility] [address] [id number] [place] [address] January, [facility] [address] [id number] [place] [address] Dec, [facility] [address] [id number] [place] [address] Dec, [facility] [address] [id number] [place] [address] Dec, [facility] [address] [id number] [place] [address] Dec, [facility] [address] [id number] [place] [address] Dec, [facility] [address] [id number] [place] [address] Dec, [facility] [address] [id number] [place] [address] Nov, [facility] [place] [facility] [address] [id number] [place] [address] Nov, [facility] [place] [facility] [address] [id number] [place] [address] Nov, [facility] [place] [facility] [address] [id number] [place] [address] Nov, [facility] [place] [facility] [address] [id number] [place] [address] Nov, [facility] [place] [facility] [address] [id number], [place] [address] Nov, [facility] [address] [address] Nov, [facility] [address], [place] [address] Oct, [facility] [address], [place] [address] Sep, [facility] [address] [place] [address] Sep, [facility] [address] [place] [address] Sep, [facility] [address] [place] [address] Aug, [facility] [address] [place] [address] Jul, [facility] [address], [place] [address] Jul, [facility] [address], [place] [address] Jul, IMMUNIZATIONS No Known Immunizations SOCIAL HISTORY Never Assessed REASON FOR VISIT [facility] PLAN OF CARE VITAL SIGNS MEDICATIONS No [...]
--- OUTSIDE RECORDS SUMMARY | 2019-05-06 11:24 | XMS REPORT ---
Author Author SHANTEL APODACA [facility] Address [address] [place] [address] Care Team Providers Care Jukebox Route Driver Name Role Phone SHANTEL APODACA Unavailable PROBLEMS Type Condition ICD9-CM Code TIN43-QT Code Onset Dates Condition Status SNOMED Code Problem Irregular menses N92.6 Active 26229695 Problem BMI 27.0-27.9,adult Z68.27 Active 801183202 Problem History of one miscarriage Z87.59 Active 443649038 Problem Counseling for control, oral contraceptives Z30.9 Active 919508094 Problem Anxiety state, unspecified F41.1 Active 692127764 Problem Otalgia, unspecified laterality H92.09 Active 15043724 Problem Female hirsutism L68.0 Active 42784018 Problem Cervical paraspinal muscle spasm M62.838 Active 101614102 Problem Lumbago with sciatica, left side M54.42 Active 765210031 Problem Family history of diabetes mellitus Z83.3 Active 661683593 Problem History of migraine Z86.69 Active 831065973 Problem Nexplanon insertion Z30.49 Active 749307761 Problem Allergic rhinitis J30.9 Active 18638259 ALLERGIES No Known Allergies ENCOUNTERS Encounter Location Date Diagnosis [facility] [id number] [place] [address] Apr, Sore throat J02.9 and Pharyngitis, unspecified etiology J02.9 [facility] [address] [place] [address] January, Sore throat J02.9 and Strep pharyngitis J02.0 [facility] [address] [id number] [address] Dec, Cervical paraspinal muscle spasm M62.838 [place] [address] [address] Dec, Cervical paraspinal muscle spasm M62.838 [facility] [place] [address] [address] Oct, Frequency of urination R35.0 ; Dysuria R30.0 and Acute right-sided low back pain without sciatica M54.5 [facility] [address] [address] Aug, Pharyngitis due to other organism J02.8 [facility] [address] [address] Apr, Lumbago with sciatica, left side M54.42 [facility] [address] [address] Dec, Sore throat J02.9 and Tonsillitis J03.[address] [address] Nov, Nexplanon removal Z30.46 and control counseling Z30.09 [facility] [address] [address] May, Acute non-recurrent maxillary sinusitis J01.00 [facility] [address] [address] January, Sore throat J02.9 and Fever, unspecified fever cause R50.[address] [address] Nov, [address] [address] 16 Nov, 2015 Chronic allergic rhinitis J30.9 [facility] [address] [address] Nov, Pharyngitis J02.9 and Acute bacterial sinusitis J01.90 [facility] [id number] [place] [address] 14 Oct, 2015 Nexplanon insertion Z30.49 [facility] [id number] [place] [address] 06 Oct, 2015 Upper respiratory tract infection, unspecified type 465.9 ; Cough R05 and Allergic rhinitis J30.9 [place] [address] [address] Oct, BMI 27.0-27.9,adult Z68.27 and Family history of diabetes mellitus Z83.3 [place] [address] [address] Oct, Well woman exam Z01.419 ; BMI 27.0-27.9,adult Z68.27 ; Family history of diabetes mellitus Z83.3 ; History of one miscarriage Z87.59 ; Irregular menses N92.6 ; Environmental allergies Z91.09 ; Cough R05 ; Female hirsutism L68.0 ; Acne, unspecified L70.9 ; Encounter for counseling regarding contraception Z30.9 and History of migraine Z86.69 [place] [address] [id number] [place] [address] May, Environmental allergies V15.09 and Pharyngitis [address] [place] [address] [address] Apr, test positive V72.42 [place] [address] [place] [id number] [place] [address] Apr, Positive test V72.42 [place] [address] [address] Apr, Threatened miscarriage in early 640.03 [place] [address] [address] Apr, Positive test V72.42 [place] [address] [facility] [id number] [address] Apr, Positive test V72.42 [facility] [place] [address] [facility] [id number] [place] [address] Apr, [facility] [address] [facility] [id number], [place] [address] Apr, test positive V72.42 [facility] [address] [id number], [place] [address] Dec, [facility] [address] [facility] [id number] [place] [address] Dec, [facility] [address] [place] [address] Oct, [facility] [address] [address] Oct, [facility] [address], [place] [address] Oct, [facility] [address] [id number], [place] [address] Sep, [facility] [address] [id number], [place] [address] Sep, [facility] [address], [place] [address] Aug, [facility] [address] [facility] [id number], [place] [address] Aug, [facility] [address] [facility] [id number], [place] [address] Jun, [facility] [address] [facility] [id number], [place] [address] Jun, [facility] [address] [id number], [place] [address] Jun, [facility] [address] [facility] [id number] [place] [address] May, [facility] [address] [id number] [place] [address] May, [facility] [place] [facility] [address] [id number] [place] [address] Mar, [facility] [address] [id number] [place] [address] Nov, [facility] [place] [facility] [address] [id number] [place] [address] Oct, [facility] [address] [id number] [place] [address] Jun, [facility] [place] [facility] [address] [id number] [place] [address] Jun, [facility] [address] [id number] [place] [address] Apr, [facility] [address] [id number] [place] [address] Apr, [facility] [place] [facility] [address] [id number] [place] [address] Apr, [facility] [address] [id number] [place] [address] Apr, [facility] [place] [facility] [address] [id number] [place] [address] Apr, [facility] [place] [facility] [address] [id number] [place] [address] January, [facility] [place] [facility] [address] [id number] [place] [address] January, [facility] [place] [facility] [address] [id number] [place] [address] January, [facility] [address] [id number] [place] [address] January, [facility] [place] [facility] [address] [id number] [place] [address] January, [facility] [address] [id number] [place] [address] Dec, [facility] [place] [facility] [address] [id number] [place] [address] Dec, [facility] [address] [id number] [place] [address] Dec, [facility] [address] [id number] [place] [address] Dec, [facility] [address] [id number] [place] [address] Dec, [facility] [address] [id number] [place] [address] Dec, [facility] [address] [id number] [place] [address] Nov, [facility] [address] [id number] [place] [address] Nov, [facility] [address] [id number] [place] [address] Nov, [facility] [place] [facility] [address] [id number] [place] [address] Nov, [facility] [place] [facility] [address] [id number] [place] [address] Nov, [facility] [place] [facility] [address] [id number] [place] [address] Nov, [facility] [place] [facility] [address] [id number] [place] [address] Nov, [facility] [place] [facility] [address] [id number] [place] [address] Oct, [facility] [place] [facility] [address] [id number], [place] [address] Sep, [facility] [address] [facility] [id number], [place] [address] Sep, [facility] [address] [facility] [id number], [place] [address] Sep, [facility] [address] [facility] [id number], [place] [address] Aug, [facility] [address] [facility] [id number], [place] [address] Jul, [facility] [address] [facility] [id number], [place] [address] Jul, [facility] [address] [facility] [id number], [place] [address] Jul, IMMUNIZATIONS No Known Immunizations SOCIAL HISTORY Never Assessed REASON FOR VISIT Sore throat for the past 2 days. had positive streps in january et march. would like tested again. [email or web address] PLAN OF CARE Activity Details Follow Up prn Reason: VITAL SIGNS Height 61 in 2018-04-09 Weight 156.4 lbs 2018-04-09 Temperature 98.8 degrees Fahrenheit 2018-04-09 Heart Rate 80 bpm 2018-04-09 Respiratory Rate 20 2018-04-09 BMI 29.55 kg/m2 2018-04-09 Blood pressure systolic 116 mmHg 2018-04-09 Blood pressure diastolic 74 mmHg 2018-04-09 MEDICATIONS Medication Instructions Dosage Frequency Start Date End Date Duration Status Symbicort 160-4.5 MCG/ACT Inhalation Twice a day 2 puffs 12h Active Zyrtec Allergy 10 MG Orally Once a day 1 tablet as needed 24h Active RESULTS Name Result Date Reference Range STREP A (IN HOUSE) 2018-04-09 STREP A negative Control + Lot # [id number] Exp date 2017 PROCEDURES Procedure Date Ordered Result Body Site STREP A ASSAY W/OPTIC April 09, 2018 INSTRUCTIONS MEDICATIONS ADMINISTERED No Known Medications MEDICAL (GENERAL) HISTORY Type Description Date Surgical History cholecystectomy age 15 Surgical History bilateral tubal 2017 Hospitalization History Sx
--- OUTSIDE RECORDS SUMMARY | 2019-05-06 11:24 | XMS REPORT ---
Author Author KARSON BATEMAN Organization [facility] Address [address] [place] [address] Care Team Providers Care Spinning Frame Changer Name Role Phone KARSON BATEMAN Unavailable PROBLEMS Type Condition ICD9-CM Code BVH43-NU Code Onset Dates Condition Status SNOMED Code Problem Irregular menses N92.6 Active 07617310 Problem BMI 27.0-27.9,adult Z68.27 Active 194256349 Problem History of one miscarriage Z87.59 Active 293335010 Problem Counseling for control, oral contraceptives Z30.9 Active 053120875 Problem Anxiety state, unspecified F41.1 Active 465552139 Problem Otalgia, unspecified laterality H92.09 Active 37070970 Problem Female hirsutism L68.0 Active 73724400 Problem Cervical paraspinal muscle spasm M62.838 Active 363613450 Problem Lumbago with sciatica, left side M54.42 Active 670896134 Problem Family history of diabetes mellitus Z83.3 Active 187132561 Problem History of migraine Z86.69 Active 783853473 Problem Nexplanon insertion Z30.49 Active 517757000 Problem Allergic rhinitis J30.9 Active 60617034 ALLERGIES No Known Allergies ENCOUNTERS Encounter Location Date Diagnosis [facility] [address] [place] [address] Jun, Sore throat J02.9 ; Acute erythematous tonsillitis J03.90 and Skin eruption R21 [facility] [id number] [place] [address] Jun, Acute maxillary sinusitis, recurrence not specified J01.00 and Nausea R11.0 [facility] [address] [place] [address] Jun, Infection of lip K13.0 and Encounter for immunization Z23 [facility] [place] [id number] [place] [address] Apr, Sore throat J02.9 and Pharyngitis, unspecified etiology J02.9 [facility] [place] [address] [address] 16 Jan, 2018 Sore throat J02.9 and Strep pharyngitis J02.0 [place] [address] [address] Dec, Cervical paraspinal muscle spasm M62.838 [place] [address] [address] Dec, Cervical paraspinal muscle spasm M62.838 [facility] [place] [address] [address] Oct, Frequency of urination R35.0 ; Dysuria R30.0 and Acute right-sided low back pain without sciatica M54.5 [facility] [place] [address] [address] Aug, Pharyngitis due to other organism J02.8 [facility] [place] [address] [address] Apr, Lumbago with sciatica, left side M54.42 [facility] [place] [address] [address] Dec, Sore throat J02.9 and Tonsillitis J03.90 [place] [address] [address] Nov, 2017 Nexplanon removal Z30.46 and control counseling Z30.09 [facility] [address] [address] May, Acute non-recurrent maxillary sinusitis J01.00 [facility] [address] [place] [address] January, Sore throat J02.9 and Fever, unspecified fever cause R50.9 [place] [address] [address] Nov, [place] [address] [address] 16 Nov, 2015 Chronic allergic rhinitis J30.9 [facility] [place] [address] [address] 04 Nov, 2015 Pharyngitis J02.9 and Acute bacterial sinusitis J01.[address] [address] 14 Oct, 2015 Nexplanon insertion Z30.[address] [address] Oct, Upper respiratory tract infection, unspecified type 465.9 ; Cough R05 and Allergic rhinitis J30.9 [place] [address] [address] Oct, BMI 27.0-27.9,adult Z68.27 and Family history of diabetes mellitus Z83.[address] [address] 04 Oct, 2015 Well woman exam Z01.419 ; BMI 27.0-27.9,adult Z68.27 ; Family history of diabetes mellitus Z83.3 ; History of one miscarriage Z87.59 ; Irregular menses N92.6 ; Environmental allergies Z91.09 ; Cough R05 ; Female hirsutism L68.0 ; Acne, unspecified L70.9 ; Encounter for counseling regarding contraception Z30.9 and History of migraine Z86.69 [place] [address] [place] [id number] [place] [address] 08 May, 2015 Environmental allergies V15.09 and Pharyngitis [address] [place] [address] [address] Apr, test positive V72.42 [facility] [address] [place] [address] Apr, Positive test V72.42 [facility] [address] [place] [address] Apr, Threatened miscarriage in early 640.03 [facility] [address] [place] [address] Apr, Positive test V72.42 [facility] [address] [place] [address] Apr, Positive test V72.42 [facility] [address] [place] [address] Apr, [facility] [address], [place] [address] Apr, test positive V72.42 [facility] [address] [place] [address] Dec, [facility] [address] [place] [address] Dec, [facility] [address] [place] [id number], [place] [address] Oct, [facility] [address], [place] [address] Oct, [facility] [id number], [place] [address] Oct, [facility] [address], [place] [address] Sep, [facility] [id number], [place] [address] Sep, [facility] [address], [place] [address] Aug, [facility] [place] [facility] [address] [id number] [place] [address] Aug, [facility] [place] [facility] [address] [id number] [place] [address] Jun, [facility] [place] [facility] [address] [id number] [place] [address] Jun, [facility] [place] [facility] [address] [id number] [place] [address] Jun, [facility] [place] [facility] [address] [id number] [place] [address] May, [facility] [place] [facility] [address] [id number] [place] [address] May, [facility] [place] [facility] [address] [id number] [place] [address] Mar, [facility] [place] [facility] [address] [id number] [place] [address] Nov, [facility] [place] [facility] [address] [id number] [place] [address] Oct, [facility] [place] [facility] [address] [id number] [place] [address] 30 Jun, 2012 [facility] [place] [facility] [address] [id number] [place] [address] Jun, [facility] [place] [facility] [address] [id number], [place] [address] Apr, [facility] [place] [facility] [address] [id number] [place] [address] Apr, [facility] [place] [facility] [address] [id number] [place] [address] Apr, [facility] [place] [facility] [address] [id number] [place] [address] Apr, [facility] [place] [facility] [address] [id number] [place] [address] 16 Apr, 2012 [facility] [address] [id number] [place] [address] January, [facility] [address] [id number] [place] [address] January, [facility] [address] [id number] [place] [address] January, [facility] [address] [id number] [place] [address] January, [facility] [address] [id number] [place] [address] January, [facility] [address] [id number] [place] [address] Dec, [facility] [address] [id number] [place] [address] Dec, [facility] [address] [id number] [place] [address] Dec, [facility] [address] [id number] [place] [address] Dec, [facility] [address] [id number] [place] [address] Dec, [facility] [address] [id number] [place] [address] Dec, [facility] [address] [id number] [place] [address] Nov, [facility] [place] [facility] [address] [id number] [place] [address] Nov, [facility] [place] [facility] [address] [id number] [place] [address] Nov, [facility] [address] [id number] [place] [address] Nov, [facility] [address] [id number], [place] [address] Nov, [facility] [address], [place] [address] Nov, [facility] [address] [facility] [id number], [place] [address] Nov, [facility] [address], [place] [address] Oct, [facility] [address], [place] [address] Sep, [facility] [address], [place] [address] Sep, [facility] [id number] [place] [address] Sep, [facility] [id number] [place] [address] Aug, [facility] [id number], [place] [address] Jul, [facility] [id number], [place] [address] Jul, [facility] [id number] [place] [address] Jul, IMMUNIZATIONS No Known Immunizations SOCIAL HISTORY Never Assessed REASON FOR VISIT was in here yesterday for an infection in her lip. started on bactrim et now has nausea. [email or web address] PLAN OF CARE Activity Details Follow Up 1 Week, prn Reason:if symptoms worsen VITAL SIGNS Height 61 in 2018-06-07 Weight 164.0 lbs 2018-06-07 Temperature 98.3 degrees Fahrenheit 2018-06-07 Heart Rate 66 bpm 2018-06-07 Respiratory Rate 20 2018-06-07 BMI 30.98 kg/m2 2018-06-07 Blood pressure systolic 104 mmHg 2018-06-07 Blood pressure diastolic 68 mmHg 2018-06-07 MEDICATIONS Medication Instructions Dosage Frequency Start Date End Date Duration Status Symbicort 160-4.5 MCG/ACT Inhalation Twice a day 2 puffs 12h Active Zofran 8 MG Orally Twice a day 1 tablet 12h Jun, 05 days Active Doxycycline Hyclate 100 mg Orally Once a day 1 capsule 24h Jun, Jun, 10 day(s) Active Zyrtec Allergy 10 MG Orally Once a day 1 tablet as needed 24h Active RESULTS No Results PROCEDURES No Known procedures INSTRUCTIONS MEDICATIONS ADMINISTERED No Known Medications MEDICAL (GENERAL) HISTORY Type Description Date Surgical History cholecystectomy age 15 Surgical History bilateral tubal 2016 Hospitalization History Sx
--- OUTSIDE RECORDS SUMMARY | 2019-05-06 11:24 | XMS REPORT ---
Author Author MAVERICK PETERSON [place] [facility] Address [address] [place] [address] Care Team Providers Care Medical Health Researcher Name Role Phone MAVERICK PETERSON Unavailable PROBLEMS Type Condition ICD9-CM Code [id number] Code Onset Dates Condition Status SNOMED Code Problem Irregular menses N92.6 Active 34956333 Problem BMI 27.0-27.9,adult Z68.27 Active 071811106 Problem History of one miscarriage Z87.59 Active 845891455 Problem Counseling for control, oral contraceptives Z30.9 Active 901920439 Problem Anxiety state, unspecified F41.1 Active 966177941 Problem Otalgia, unspecified laterality H92.09 Active 65585233 Problem Female hirsutism L68.0 Active 27971615 Problem Cervical paraspinal muscle spasm M62.838 Active 859031968 Problem Lumbago with sciatica, left side M54.42 Active 023914131 Problem Family history of diabetes mellitus Z83.3 Active 684223349 Problem History of migraine Z86.69 Active 641450174 Problem Nexplanon insertion Z30.49 Active 780226754 Problem Allergic rhinitis J30.9 Active 41180621 ALLERGIES No Known Allergies ENCOUNTERS Encounter Location Date Diagnosis [facility] [address] [address] Apr, Sore throat J02.9 and Pharyngitis, unspecified etiology J02.9 [facility] [address] [place] [address] January, Sore throat J02.9 and Strep pharyngitis J02.0 [facility] [address] [address] Dec, Cervical paraspinal muscle spasm M62.838 [facility] [address] [address] 10 Dec, 2017 Cervical paraspinal muscle spasm M62.838 [facility] [address] [address] Oct, Frequency of urination R35.0 ; Dysuria R30.0 and Acute right-sided low back pain without sciatica M54.5 [facility] [address] [address] Aug, Pharyngitis due to other organism J02.8 [facility] [address] [address] Apr, Lumbago with sciatica, left side M54.42 [facility] [address] [address] Dec, Sore throat J02.9 and Tonsillitis J03.[address] [address] Nov, Nexplanon removal Z30.46 and control counseling Z30.09 [facility] [address] [address] May, Acute non-recurrent maxillary sinusitis J01.00 [facility] [address] [address] January, Sore throat J02.9 and Fever, unspecified fever cause R50.[address] [address] Nov, [address] [address] 16 Nov, 2015 Chronic allergic rhinitis J30.9 [facility] [address] [address] Nov, Pharyngitis J02.9 and Acute bacterial sinusitis J01.90 [facility] [id number] [place] [address] 14 Oct, 2015 Nexplanon insertion Z30.49 [facility] [id number] [place] [address] Oct, Upper respiratory tract infection, unspecified type 465.9 ; Cough R05 and Allergic rhinitis J30.9 [place] [address] [address] Oct, BMI 27.0-27.9,adult Z68.27 and Family history of diabetes mellitus Z83.3 [place] [address] [address] Oct, Well woman exam Z01.419 ; BMI 27.0-27.9,adult Z68.27 ; Family history of diabetes mellitus Z83.3 ; History of one miscarriage Z87.59 ; Irregular menses N92.6 ; Environmental allergies Z91.09 ; Cough R05 ; Female hirsutism L68.0 ; Acne, unspecified L70.9 ; Encounter for counseling regarding contraception Z30.9 and History of migraine Z86.69 [place] [address] [address] May, Environmental allergies V15.09 and Pharyngitis [address] [place] [address] [place] [id number] [place] [address] Apr, test positive V72.42 [place] [address] [id number] [place] [address] Apr, Positive test V72.42 [place] [address] [address] Apr, Threatened miscarriage in early 640.03 [place] [address] [address] Apr, Positive test V72.42 [place] [address] [place] [address] Apr, Positive test V72.42 [facility] [address], [place] [address] Apr, [facility] [address] [address] Apr, test positive V72.42 [facility] [address] [facility] [id number] [address] Dec, [facility] [address] [facility] [id number] [address] Dec, [facility] [address], [place] [address] Oct, [facility] [address], [place] [address] Oct, [facility] [address] [address] Oct, [facility] [address] [id number] [address] Sep, [facility] [address] [address] Sep, [facility] [address] [address] Aug, [facility] [address] [address] Aug, [facility] [address] [facility] [id number] [address] Jun, [facility] [address] [id number] [address] Jun, [facility] [address] [id number] [address] Jun, [facility] [address] [address] May, [facility] [address] [id number] [place] [address] May, [facility] [place] [facility] [address] [id number] [place] [address] Mar, [facility] [place] [facility] [address] [id number] [place] [address] Nov, [facility] [place] [facility] [address] [id number] [place] [address] Oct, [facility] [address] [id number] [place] [address] Jun, [facility] [place] [facility] [address] [id number] [place] [address] Jun, [facility] [address] [id number] [place] [address] Apr, [facility] [address] [id number] [place] [address] Apr, [facility] [address] [id number] [place] [address] Apr, [facility] [place] [facility] [address] [id number] [place] [address] Apr, [facility] [address] [id number] [place] [address] Apr, [facility] [place] [facility] [address] [id number] [place] [address] January, [facility] [place] [facility] [address] [id number] [place] [address] January, [facility] [place] [facility] [address] [id number] [place] [address] January, [facility] [place] [facility] [address] [id number] [place] [address] January, [facility] [place] [facility] [address] [id number] [place] [address] January, [facility] [address] [id number] [place] [address] Dec, [facility] [place] [facility] [address] [id number] [place] [address] Dec, [facility] [place] [facility] [address] [id number] [place] [address] Dec, [facility] [place] [facility] [address] [id number] [place] [address] Dec, [facility] [place] [facility] [address] [id number] [place] [address] Dec, [facility] [place] [facility] [address] [id number] [place] [address] Dec, [facility] [place] [facility] [address] [id number] [place] [address] Nov, [facility] [address] [id number] [place] [address] Nov, [facility] [place] [facility] [address] [id number] [place] [address] Nov, [facility] [place] [facility] [address] [id number] [place] [address] Nov, [facility] [place] [facility] [address] [id number] [place] [address] Nov, [facility] [place] [facility] [address] [id number] [place] [address] Nov, [facility] [place] [facility] [address] [id number] [place] [address] Nov, [facility] [place] [facility] [address] [id number] [place] [address] Oct, [facility] [place] [facility] [address] [id number] [place] [address] Sep, [facility] [address] [facility] [id number] [address] Sep, [facility] [address] [id number] [address] Sep, [facility] [address] [id number] [address] Aug, [facility] [address] [address] Jul, [facility] [address] [facility] [id number], [place] [address] Jul, [facility] [address] [address] Jul, IMMUNIZATIONS No Known Immunizations SOCIAL HISTORY Never Assessed REASON FOR VISIT Earache Pt c/o R ear pain which radiates down into throat JOCELYNE Solitario PLAN OF CARE Activity Details Follow Up prn Reason: VITAL SIGNS Height 61 in 2018-02-14 Weight 153.6 lbs 2018-02-14 Temperature 100.6 degrees Fahrenheit 2018-02-14 Heart Rate 88 bpm 2018-02-14 Respiratory Rate 20 2018-02-14 BMI 29.02 kg/m2 2018-02-14 Blood pressure systolic 118 mmHg 2018-02-14 Blood pressure diastolic 72 mmHg 2018-02-14 MEDICATIONS Medication Instructions Dosage Frequency Start Date End Date Duration Status Amoxicillin 500 MG Orally every 12 hrs 1 capsule 12h January, January, 10 day(s) Active Cyclobenzaprine HCl 10 mg Orally 2 times a day 1 tablet as needed 12h Apr, Active Tramadol HCl 50 mg Orally 3 times a day 1 tablet as needed 8h Dec, Not-Taking Symbicort 160-4.5 MCG/ACT Inhalation Twice a day 2 puffs 12h Active Zyrtec Allergy 10 MG Orally Once a day 1 tablet as needed 24h Active Naproxen 500 mg Orally 2 times a day 1 tablet 12h Apr, Active RESULTS Name Result Date Reference Range STREP A (IN HOUSE) 2018-02-14 STREP A positive Control + Lot # [id number] Exp date 2020-07-11 PROCEDURES Procedure Date Ordered Result Body Site STREP A ASSAY W/OPTIC February 14, 2018 INSTRUCTIONS MEDICATIONS ADMINISTERED No Known Medications MEDICAL (GENERAL) HISTORY Type Description Date Surgical History cholecystectomy age 15 Surgical History bilateral tubal 2017 Hospitalization History Sx
--- OUTSIDE RECORDS SUMMARY | 2019-05-06 11:24 | XMS REPORT ---
Author Author NOLAN ORTEGA [facility] Address [address] [place] [address] Care Team Providers Care Yeast Stacker Name Role Phone NOLAN ORTEGA Unavailable PROBLEMS Type Condition ICD9-CM Code DOD10-ZB Code Onset Dates Condition Status SNOMED Code Problem Irregular menses N92.6 Active 51203925 Problem BMI 27.0-27.9,adult Z68.27 Active 547578255 Problem History of one miscarriage Z87.59 Active 990177810 Problem Counseling for control, oral contraceptives Z30.9 Active 049168049 Problem Anxiety state, unspecified F41.1 Active 291853676 Problem Otalgia, unspecified laterality H92.09 Active 60873876 Problem Female hirsutism L68.0 Active 29069439 Problem Cervical paraspinal muscle spasm M62.838 Active 581578081 Problem Lumbago with sciatica, left side M54.42 Active 571250162 Problem Family history of diabetes mellitus Z83.3 Active 376788463 Problem History of migraine Z86.69 Active 600530163 Problem Nexplanon insertion Z30.49 Active 797704333 Problem Allergic rhinitis J30.9 Active 22729208 ALLERGIES No Known Allergies ENCOUNTERS Encounter Location Date Diagnosis [facility] [address] [place] [address] Jun, Sore throat J02.9 ; Acute erythematous tonsillitis J03.90 and Skin eruption R21 [facility] [id number] [place] [address] Jun, Acute maxillary sinusitis, recurrence not specified J01.00 and Nausea R11.0 [facility] [address] [place] [address] Jun, Infection of lip K13.0 and Encounter for immunization Z23 [facility] [id number] [place] [address] Apr, Sore throat J02.9 and Pharyngitis, unspecified etiology J02.9 [facility] [place] [id number] [place] [address] January, Sore throat J02.9 and Strep pharyngitis J02.0 [place] [address] [address] Dec, Cervical paraspinal muscle spasm M62.838 [place] [address] [address] Dec, Cervical paraspinal muscle spasm M62.838 [facility] [place] [address] [address] Oct, Frequency of urination R35.0 ; Dysuria R30.0 and Acute right-sided low back pain without sciatica M54.5 [facility] [place] [address] [address] Aug, Pharyngitis due to other organism J02.8 [facility] [place] [address] [address] Apr, Lumbago with sciatica, left side M54.42 [facility] [place] [address] [address] Dec, Sore throat J02.9 and Tonsillitis J03.90 [place] [address] [address] Nov, Nexplanon removal Z30.46 and control counseling Z30.09 [facility] [place] [address] [address] May, Acute non-recurrent maxillary sinusitis J01.00 [facility] [place] [address] [address] January, Sore throat J02.9 and Fever, unspecified fever cause R50.9 [place] [address] [address] Nov, [place] [address] [address] Nov, Chronic allergic rhinitis J30.9 [facility] [place] [address] [address] Nov, Pharyngitis J02.9 and Acute bacterial sinusitis J01.90 [place] [address] [address] Oct, Nexplanon insertion Z30.49 [place] [address] [address] Oct, Upper respiratory tract infection, unspecified type 465.9 ; Cough R05 and Allergic rhinitis J30.9 [place] [address] [address] Oct, BMI 27.0-27.9,adult Z68.27 and Family history of diabetes mellitus Z83.3 [place] [address] [address] 04 Oct, 2015 Well woman exam Z01.419 ; BMI 27.0-27.9,adult Z68.27 ; Family history of diabetes mellitus Z83.3 ; History of one miscarriage Z87.59 ; Irregular menses N92.6 ; Environmental allergies Z91.09 ; Cough R05 ; Female hirsutism L68.0 ; Acne, unspecified L70.9 ; Encounter for counseling regarding contraception Z30.9 and History of migraine Z86.69 [place] [id number] [place] [address] May, Environmental allergies V15.09 and Pharyngitis [address] [place] [address] [place] [address] Apr, test positive V72.42 [facility] [address] [address] Apr, Positive test V72.42 [facility] [address] [address] Apr, Threatened miscarriage in early 640.03 [facility] [id number] [address] Apr, Positive test V72.42 [facility] [address] [place] [address] Apr, Positive test V72.42 [facility] [address] [address] Apr, [facility] [id number] [place] [address] Apr, test positive V72.42 [facility] [address] [address] Dec, [facility] [address] [address] Dec, [facility] [address] [address] Oct, [facility] [address] [address] Oct, [facility] [address] [address] Oct, [facility] [address] [address] Sep, [facility] [address] [address] Sep, [facility] [address] [address] Aug, [facility] [address] [id number] [place] [address] Aug, [facility] [place] [facility] [address] [id number] [place] [address] Jun, [facility] [place] [facility] [address] [id number] [place] [address] Jun, [facility] [place] [facility] [address] [id number] [place] [address] Jun, [facility] [place] [facility] [address] [id number] [place] [address] May, [facility] [place] [facility] [address] [id number] [place] [address] May, [facility] [place] [facility] [address] [id number] [place] [address] Mar, [facility] [place] [facility] [address] [id number] [place] [address] Nov, [facility] [place] [facility] [address] [id number] [place] [address] Oct, [facility] [place] [facility] [address] [id number] [place] [address] 30 Jun, 2012 [facility] [place] [facility] [address] [id number] [place] [address] Jun, [facility] [place] [facility] [address] [id number] [place] [address] Apr, [facility] [place] [facility] [address] [id number] [place] [address] Apr, [facility] [place] [facility] [address] [id number] [place] [address] Apr, [facility] [place] [facility] [address] [id number] [place] [address] Apr, [facility] [place] [facility] [address] [id number] [place] [address] 16 Apr, 2012 [facility] [address] [id number] [place] [address] January, [facility] [address] [id number] [place] [address] January, [facility] [address] [id number] [place] [address] January, [facility] [address] [id number] [place] [address] January, [facility] [address] [id number] [place] [address] January, [facility] [address] [id number] [place] [address] Dec, [facility] [address] [id number] [place] [address] Dec, [facility] [address] [id number] [place] [address] Dec, [facility] [address] [id number] [place] [address] Dec, [facility] [address] [id number] [place] [address] Dec, [facility] [address] [id number] [place] [address] Dec, [facility] [address] [id number] [place] [address] Nov, [facility] [place] [facility] [address] [id number] [place] [address] Nov, [facility] [place] [facility] [address] [id number] [place] [address] Nov, [facility] [address] [id number] [place] [address] Nov, [facility] [id number] [address] Nov, [facility] [address] [address] Nov, [facility] [address] [address] Nov, [facility] [address] [address] Oct, [facility] [address] [address] Sep, [facility] [address] [place] [address] Sep, [facility] [address] [place] [address] Sep, [facility] [id number] [place] [id number] Aug, [facility] [id number] [address] Jul, [facility] [id number] [address] Jul, [facility] [id number] [address] Jul, IMMUNIZATIONS No Known Immunizations SOCIAL HISTORY Never Assessed REASON FOR VISIT sore throat for 9 days. was here 2 days ago et then back yesterday for this comp laint. wants to be tested for strep. [email or web address] PLAN OF CARE Activity Details Follow Up prn Reason: VITAL SIGNS Height 61 in 2018-06-08 Weight 161.6 lbs 2018-06-08 Temperature 99.6 degrees Fahrenheit 2018-06-08 Heart Rate 68 bpm 2018-06-08 Respiratory Rate 20 2018-06-08 BMI 30.53 kg/m2 2018-06-08 Blood pressure systolic 110 mmHg 2018-06-08 Blood pressure diastolic 66 mmHg 2018-06-08 MEDICATIONS Medication Instructions Dosage Frequency Start Date End Date Duration Status Zyrtec Allergy 10 MG Orally Once a day 1 tablet as needed 24h Active Doxycycline Hyclate 100 mg Orally Once a day 1 capsule 24h Jun, Jun, 10 day(s) Active Symbicort 160-4.5 MCG/ACT Inhalation Twice a day 2 puffs 12h Active Keflex 500 mg Orally 3 times a day 1 capsule 8h Jun, Jun, 10 day(s) Active Zofran 8 MG Orally Twice a day 1 tablet 12h Jun, 5 days Active RESULTS Name Result Date Reference Range STREP A (IN HOUSE) 2018-06-08 STREP A negative Control + Lot # [id number] Exp date 2018 08 30 PROCEDURES Procedure Date Ordered Result Body Site STREP A ASSAY W/OPTIC Jun 08, 2018 INSTRUCTIONS MEDICATIONS ADMINISTERED No Known Medications MEDICAL (GENERAL) HISTORY Type Description Date Surgical History cholecystectomy age 15 Surgical History bilateral tubal 2017 Hospitalization History Sx
--- OUTSIDE RECORDS SUMMARY | 2019-05-06 11:25 | XMS REPORT ---
Author Author YOLANDA JAQUEZ [facility] Address [address] [place] [address] Care Team Providers Care Bit Setter Name Role Phone YOLNADA JAQUEZ Unavailable PROBLEMS Type Condition ICD9-CM Code TGQ75-QC Code Onset Dates Condition Status SNOMED Code Problem Irregular menses N92.6 Active 11156546 Problem BMI 27.0-27.9,adult Z68.27 Active 470292921 Problem History of one miscarriage Z87.59 Active 059260875 Problem Counseling for control, oral contraceptives Z30.9 Active 106678223 Problem Anxiety state, unspecified F41.1 Active 791691408 Problem Otalgia, unspecified laterality H92.09 Active 61414775 Problem Female hirsutism L68.0 Active 29989093 Problem Cervical paraspinal muscle spasm M62.838 Active 402633899 Problem Lumbago with sciatica, left side M54.42 Active 797592881 Problem Family history of diabetes mellitus Z83.3 Active 886941280 Problem History of migraine Z86.69 Active 940639495 Problem Nexplanon insertion Z30.49 Active 183733984 Problem Allergic rhinitis J30.9 Active 53569229 ALLERGIES No Information ENCOUNTERS Encounter Location Date Diagnosis [facility] [id number] [place] [address] Apr, Sore throat J02.9 and Pharyngitis, unspecified etiology J02.9 [facility] [id number] [place] [address] January, Sore throat J02.9 and Strep pharyngitis J02.0 [facility] [address] [place] [address] Dec, Cervical paraspinal muscle spasm M62.838 [facility] [place] [address] [address] Dec, Cervical paraspinal muscle spasm M62.838 [facility] [address] [address] Oct, Frequency of urination R35.0 ; Dysuria R30.0 and Acute right-sided low back pain without sciatica M54.5 [facility] [address] [address] Aug, Pharyngitis due to other organism J02.8 [facility] [address] [address] Apr, Lumbago with sciatica, left side M54.42 [facility] [address] [address] Dec, Sore throat J02.9 and Tonsillitis J03.[address] [address] Nov, Nexplanon removal Z30.46 and control counseling Z30.09 [facility] [address] [address] May, Acute non-recurrent maxillary sinusitis J01.00 [facility] [address] [address] January, Sore throat J02.9 and Fever, unspecified fever cause R50.[address] [address] Nov, [address] [address] 16 Nov, 2015 Chronic allergic rhinitis J30.9 [facility] [address] [address] 04 Nov, 2015 Pharyngitis J02.9 and Acute bacterial sinusitis J01.90 [facility] [id number] [place] [address] 14 Oct, 2015 Nexplanon insertion Z30.49 [facility] [id number] [place] [address] Oct, Upper respiratory tract infection, unspecified type 465.9 ; Cough R05 and Allergic rhinitis J30.9 [place] [address] [address] Oct, BMI 27.0-27.9,adult Z68.27 and Family history of diabetes mellitus Z83.3 [place] [address] [address] Oct, Well woman exam Z01.419 ; BMI 27.0-27.9,adult Z68.27 ; Family history of diabetes mellitus Z83.3 ; History of one miscarriage Z87.59 ; Irregular menses N92.6 ; Environmental allergies Z91.09 ; Cough R05 ; Female hirsutism L68.0 ; Acne, unspecified L70.9 ; Encounter for counseling regarding contraception Z30.9 and History of migraine Z86.69 [place] [address] [address] May, Environmental allergies V15.09 and Pharyngitis [address] [place] [address] [address] Apr, test positive V72.42 [place] [address] [address] [id number] [place] [address] Apr, Positive test V72.42 [place] [address] [address] Apr, Threatened miscarriage in early 640.03 [place] [address] [address] Apr, Positive test V72.42 [place] [address] [place] [address] Apr, Positive test V72.42 [facility] [address] [place] [address] Apr, [facility] [address] [address] Apr, test positive V72.42 [facility] [id number] [place] [address], [place] [address] Dec, [facility] [id number] [place] [address] Dec, [facility] [id number] [place] [address] Oct, [facility] [id number] [place] [address] Oct, [facility] [id number] [place] [address] Oct, [facility] [address] [address] Sep, [facility] [address] [place] [address] Sep, [facility] [address] [address] Aug, [facility] [address] [address] Aug, [facility] [id number] [address] Jun, [facility] [id number] [place] [address], [place] [address] Jun, [facility] [address] [address] Jun, [facility] [id number] [place] [address] May, [facility] [address] [id number] [place] [address] May, [facility] [place] [facility] [address] [id number] [place] [address] Mar, [facility] [place] [facility] [address] [id number] [place] [address] Nov, [facility] [place] [facility] [address] [id number] [place] [address] Oct, [facility] [place] [facility] [address] [id number] [place] [address] Jun, [facility] [place] [facility] [address] [id number] [place] [address] Jun, [facility] [place] [facility] [address] [id number] [place] [address] Apr, [facility] [place] [facility] [address] [id number] [place] [address] Apr, [facility] [place] [facility] [address] [id number] [place] [address] Apr, [facility] [place] [facility] [address] [id number] [place] [address] Apr, [facility] [place] [facility] [address] [id number] [place] [address] Apr, [facility] [place] [facility] [address] [id number] [place] [address] January, [facility] [place] [facility] [address] [id number] [place] [address] January, [facility] [place] [facility] [address] [id number] [place] [address] January, [facility] [place] [facility] [address] [id number] [place] [address] January, [facility] [place] [facility] [address] [id number] [place] [address] January, [facility] [address] [id number] [place] [address] Dec, [facility] [address] [id number] [place] [address] Dec, [facility] [address] [id number] [place] [address] Dec, [facility] [address] [id number] [place] [address] Dec, [facility] [address] [id number] [place] [address] Dec, [facility] [address] [id number] [place] [address] Dec, [facility] [address] [id number] [place] [address] Nov, [facility] [address] [id number] [place] [address] Nov, [facility] [address] [id number] [place] [address] Nov, [facility] [address] [id number] [place] [address] Nov, [facility] [address] [id number] [place] [address] Nov, [facility] [address] [id number] [place] [address] Nov, [facility] [address] [id number] [place] [address] Nov, [facility] [address] [id number] [place] [address] Oct, [facility] [address] [id number] [place] [address] Sep, [facility] [address] [facility] [id number], [place] [address] Sep, [facility] [address] [facility] [id number], [place] [address] Sep, [facility] [address] [facility] [id number], [place] [address] Aug, [facility] [address] [facility] [id number], [place] [address] Jul, [facility] [address] [facility] [id number], [place] [address] Jul, [facility] [address] [facility] [id number], [place] [address] Jul, IMMUNIZATIONS No Known Immunizations SOCIAL HISTORY Never Assessed REASON FOR VISIT PLAN OF CARE VITAL SIGNS MEDICATIONS Medication Instructions Dosage Frequency Start Date End Date Duration Status Cyclobenzaprine HCl 10 mg Orally 2 times a day 1 tablet as needed 12h Apr, Active Tramadol HCl 50 mg Orally 3 times a day 1 tablet as needed 8h 10 Dec, 2017 Active Naproxen 500 mg Orally 2 times a day 1 tablet 12h Apr, Active RESULTS No Results PROCEDURES No Known procedures INSTRUCTIONS MEDICATIONS ADMINISTERED No Known Medications MEDICAL (GENERAL) HISTORY Type Description Date Surgical History cholecystectomy age 15 Surgical History bilateral tubal 2017 Hospitalization History Sx
--- OUTSIDE RECORDS SUMMARY | 2019-05-06 11:25 | XMS REPORT ---
Author Author YOLANDA JAQUEZ [facility] Address [address] [place] [address] Care Team Providers Care Nutritionalist Name Role Phone YOLANDA JAQUEZ Unavailable PROBLEMS Type Condition ICD9-CM Code JSL54-SH Code Onset Dates Condition Status SNOMED Code Problem Irregular menses N92.6 Active 91971741 Problem BMI 27.0-27.9,adult Z68.27 Active 223206081 Problem History of one miscarriage Z87.59 Active 339538437 Problem Counseling for control, oral contraceptives Z30.9 Active 159305455 Problem Anxiety state, unspecified F41.1 Active 629381204 Problem Otalgia, unspecified laterality H92.09 Active 32595416 Problem Female hirsutism L68.0 Active 02104552 Problem Cervical paraspinal muscle spasm M62.838 Active 527034249 Problem Lumbago with sciatica, left side M54.42 Active 271982003 Problem Family history of diabetes mellitus Z83.3 Active 699141505 Problem History of migraine Z86.69 Active 626069424 Problem Nexplanon insertion Z30.49 Active 041157854 Problem Allergic rhinitis J30.9 Active 49452114 ALLERGIES No Known Allergies ENCOUNTERS Encounter Location Date Diagnosis [facility] [address] [place] [address] Apr, Sore throat J02.9 and Pharyngitis, unspecified etiology J02.9 [facility] [address] [place] [address] January, Sore throat J02.9 and Strep pharyngitis J02.0 [facility] [address] [address] Dec, Cervical paraspinal muscle spasm M62.838 [facility] [address] [address] Dec, Cervical paraspinal muscle spasm M62.838 [facility] [address] [address] Oct, Frequency of urination R35.0 ; Dysuria R30.0 and Acute right-sided low back pain without sciatica M54.5 [facility] [address] [address] Aug, Pharyngitis due to other organism J02.8 [facility] [address] [address] Apr, Lumbago with sciatica, left side M54.42 [facility] [address] [address] Dec, Sore throat J02.9 and Tonsillitis J03.[address] [address] Nov, Nexplanon removal Z30.46 and control counseling Z30.09 [facility] [address] [address] May, Acute non-recurrent maxillary sinusitis J01.00 [facility] [address] [address] January, Sore throat J02.9 and Fever, unspecified fever cause R50.9 [place] [address] [address] Nov, [address] [address] Nov, Chronic allergic rhinitis J30.9 [facility] [address] [address] Nov, Pharyngitis J02.9 and Acute bacterial sinusitis J01.90 [facility] [id number] [place] [address] 14 Oct, 2015 Nexplanon insertion Z30.49 [facility] [id number] [place] [address] Oct, Upper respiratory tract infection, unspecified type 465.9 ; Cough R05 and Allergic rhinitis J30.9 [place] [address] [address] Oct, BMI 27.0-27.9,adult Z68.27 and Family history of diabetes mellitus Z83.3 [place] [address] [address] Oct, Well woman exam Z01.419 ; BMI 27.0-27.9,adult Z68.27 ; Family history of diabetes mellitus Z83.3 ; History of one miscarriage Z87.59 ; Irregular menses N92.6 ; Environmental allergies Z91.09 ; Cough R05 ; Female hirsutism L68.0 ; Acne, unspecified L70.9 ; Encounter for counseling regarding contraception Z30.9 and History of migraine Z86.69 [place] [address] [address] May, Environmental allergies V15.09 and Pharyngitis [address] [place] [address] [address] Apr, test positive V72.42 [place] [address] [address] [id number] [place] [address] Apr, Positive test V72.42 [place] [address] [address] Apr, Threatened miscarriage in early 640.03 [place] [address] [address] Apr, Positive test V72.42 [place] [address] [place] [address] Apr, Positive test V72.42 [facility] [address] [place] [address] Apr, [facility] [address] [address] Apr, test positive V72.42 [facility] [id number] [place] [address], [place] [address] Dec, [facility] [id number] [place] [address], [place] [address] Dec, [facility] [id number] [place] [address], [place] [address] Oct, [facility] [id number] [place] [address] Oct, [facility] [id number] [place] [address] Oct, [facility] [address] [place] [address] Sep, [facility] [address] [place] [address] Sep, [facility] [address] [address] Aug, [facility] [address] [address] Aug, [facility] [address] [address] Jun, [facility] [id number] [place] [address], [place] [address] Jun, [facility] [address] [address] Jun, [facility] [id number] [place] [address] May, [facility] [place] [facility] [address] [id number] [place] [address] May, [facility] [place] [facility] [address] [id number] [place] [address] Mar, [facility] [place] [facility] [address] [id number] [place] [address] Nov, [facility] [place] [facility] [address] [id number] [place] [address] Oct, [facility] [place] [facility] [address] [id number] [place] [address] Jun, [facility] [place] [facility] [address] [id number] [place] [address] Jun, [facility] [place] [facility] [address] [id number] [place] [address] Apr, [facility] [place] [facility] [address] [id number] [place] [address] Apr, [facility] [place] [facility] [address] [id number] [place] [address] Apr, [facility] [place] [facility] [address] [id number] [place] [address] Apr, [facility] [place] [facility] [address] [id number] [place] [address] Apr, [facility] [place] [facility] [address] [id number] [place] [address] January, [facility] [place] [facility] [address] [id number] [place] [address] January, [facility] [place] [facility] [address] [id number] [place] [address] January, [facility] [place] [facility] [address] [id number] [place] [address] January, [facility] [place] [facility] [address] [id number] [place] [address] January, [facility] [address] [id number] [place] [address] Dec, [facility] [address] [id number] [place] [address] Dec, [facility] [address] [id number] [place] [address] Dec, [facility] [address] [id number] [place] [address] Dec, [facility] [address] [id number] [place] [address] Dec, [facility] [address] [id number] [place] [address] Dec, [facility] [address] [id number] [place] [address] Nov, [facility] [address] [id number] [place] [address] Nov, [facility] [address] [id number] [place] [address] Nov, [facility] [address] [id number] [place] [address] Nov, [facility] [address] [id number] [place] [address] Nov, [facility] [address] [id number] [place] [address] Nov, [facility] [address] [id number] [place] [address] Nov, [facility] [address] [id number] [place] [address] Oct, [facility] [address] [id number] [place] [address] Sep, [facility] [address] [facility] [id number] [address] Sep, [facility] [address] [facility] [id number][place] [address] Sep, [facility] [address] [facility] [id number][place] [address] Aug, [facility] [address] [facility] [id number][place] [address] Jul, [facility] [address] [facility] [id number][place] [address] Jul, [facility] [address] [facility] [id number][place] [address] Jul, IMMUNIZATIONS No Known Immunizations SOCIAL HISTORY Never Assessed REASON FOR VISIT Establish Care Left shoulder and neck pain for last month, has shooting pains do wn left arm- Alaina Gonzalez RN PLAN OF CARE Activity Details Follow Up prn Reason: VITAL SIGNS Height 61 in 2018-01-09 Weight 157 lbs 2018-01-09 Temperature 98.0 degrees Fahrenheit 2018-01-09 Heart Rate 78 bpm 2018-01-09 Respiratory Rate 22 2018-01-09 BMI 29.66 kg/m2 2018-01-09 Blood pressure systolic 112 mmHg 2018-01-09 Blood pressure diastolic 62 mmHg 2018-01-09 MEDICATIONS Medication Instructions Dosage Frequency Start Date End Date Duration Status Cyclobenzaprine HCl 10 mg Orally 2 times a day 1 tablet as needed 12h Apr, Active Zyrtec Allergy 10 MG Orally Once a day 1 tablet as needed 24h Active Symbicort 160-4.5 MCG/ACT Inhalation Twice a day 2 puffs 12h Active Naproxen 500 mg Orally 2 times a day 1 tablet 12h Apr, Active Tramadol HCl 50 mg Orally 3 times a day 1 tablet as needed 8h Dec, Active RESULTS No Results PROCEDURES No Known procedures INSTRUCTIONS MEDICATIONS ADMINISTERED No Known Medications MEDICAL (GENERAL) HISTORY Type Description Date Surgical History cholecystectomy age 15 Surgical History bilateral tubal 2017 Hospitalization History Sx
--- OUTSIDE RECORDS SUMMARY | 2019-05-06 11:25 | XMS REPORT ---
Author Author ABUNDIO BENNETT Organization [facility] Address [address] [place] [address] Care Team Providers Care Weapons Officer Name Role Phone ABUNDIO BENNETT Unavailable PROBLEMS Type Condition ICD9-CM Code COV97-PN Code Onset Dates Condition Status SNOMED Code Problem History of one miscarriage Z87.59 Active 555226239 Problem Irregular menses N92.6 Active 82502089 Problem Female hirsutism L68.0 Active 46852119 Problem Counseling for control, oral contraceptives Z30.9 Active 208392965 Problem Anxiety state, unspecified F41.1 Active 357193069 Problem Otalgia, unspecified laterality H92.09 Active 55984765 Problem Lumbago with sciatica, left side M54.42 Active 708628502 Problem Nexplanon insertion Z30.49 Active 075916083 Problem History of migraine Z86.69 Active 662757680 Problem BMI 27.0-27.9,adult Z68.27 Active 170039616 Problem Allergic rhinitis J30.9 Active 79765993 Problem Family history of diabetes mellitus Z83.3 Active 463233669 ALLERGIES No Known Allergies ENCOUNTERS Encounter Location Date Diagnosis [facility] [address] [address] Dec, [facility] [id number] [place] [address] Oct, Frequency of urination R35.0 ; Dysuria R30.0 and Acute right-sided low back pain without sciatica M54.5 [facility] [address] [place] [address] Aug, Pharyngitis due to other organism J02.8 [facility] [id number] [place] [address] Apr, Lumbago with sciatica, left side M54.42 [facility] [address] [address] Dec, Sore throat J02.9 and Tonsillitis J03.90 [place] [address] [address] Nov, Nexplanon removal Z30.46 and control counseling Z30.09 [facility] [address] [address] May, Acute non-recurrent maxillary sinusitis J01.00 [facility] [address] [address] January, Sore throat J02.9 and Fever, unspecified fever cause R50.[address] [address] Nov, [place] [address] [address] 16 Nov, 2015 Chronic allergic rhinitis J30.9 [facility] [address] [address] 04 Nov, 2015 Pharyngitis J02.9 and Acute bacterial sinusitis J01.[address] [address] 14 Oct, 2015 Nexplanon insertion Z30.49 [facility] [address] [address] 06 Oct, 2015 Upper respiratory tract infection, unspecified type 465.9 ; Cough R05 and Allergic rhinitis J30.[address] [address] Oct, BMI 27.0-27.9,adult Z68.27 and Family history of diabetes mellitus Z83.[address] [address] Oct, 2016 Well woman exam Z01.419 ; BMI 27.0-27.9,adult Z68.27 ; Family history of diabetes mellitus Z83.3 ; History of one miscarriage Z87.59 ; Irregular menses N92.6 ; Environmental allergies Z91.09 ; Cough R05 ; Female hirsutism L68.0 ; Acne, unspecified L70.9 ; Encounter for counseling regarding contraception Z30.9 and History of migraine Z86.69 [place] [address] [address] May, Environmental allergies V15.09 and Pharyngitis 462 [place] [address] [address] Apr, test positive V72.42 [place] [address] [address] Apr, Positive test V72.42 [place] [address] [address] Apr, Threatened miscarriage in early 640.03 [place] [address] [address] Apr, Positive test V72.42 [place] [address] [address] Apr, Positive test V72.42 [place] [address] [address] Apr, [place] [address] [address] Apr, test positive V72.42 [place] [address] [address] Dec, [place] [address] [address] Dec, [place] [address] [address] Oct, [facility] [address] [id number] [place] [address] Oct, [facility] [place] [facility] [address] [id number] [place] [address] Oct, [facility] [place] [facility] [address] [id number] [place] [address] Sep, [facility] [place] [facility] [address] [id number] [place] [address] Sep, [facility] [place] [facility] [address] [id number] [place] [address] Aug, [facility] [place] [facility] [address] [id number] [place] [address] Aug, [facility] [address] [place] [id number] [place] [address] Jun, [facility] [place] [facility] [address] [id number] [place] [address] Jun, [facility] [place] [facility] [address] [id number] [place] [address] Jun, [facility] [place] [facility] [address] [facility] [id number] [place] [address] May, [facility] [place] [facility] [address] [id number] [place] [address] May, [facility] [place] [facility] [address] [id number] [place] [address] Mar, [facility] [place] [facility] [address] [id number] [place] [address] Nov, [facility] [place] [facility] [address] [id number] [place] [address] Oct, [facility] [place] [facility] [address] [id number] [place] [address] 30 Jun, 2012 [facility] [place] [facility] [address] [id number] [place] [address] 04 Jun, 2012 [facility] [address] [id number] [place] [address] Apr, [facility] [place] [facility] [address] [id number] [place] [address] Apr, [facility] [address] [id number] [place] [address] Apr, [facility] [place] [facility] [address] [id number] [place] [address] Apr, [facility] [address] [id number] [place] [address] Apr, [facility] [place] [facility] [address] [id number] [place] [address] January, [facility] [address] [id number] [place] [address] January, [facility] [address] [id number] [place] [address] January, [facility] [address] [id number] [place] [address] January, [facility] [address] [id number] [place] [address] January, [facility] [place] [facility] [address] [id number] [place] [address] Dec, [facility] [place] [facility] [address] [id number] [place] [address] Dec, [facility] [place] [facility] [address] [id number] [place] [address] Dec, [facility] [place] [facility] [address] [id number] [place] [address] Dec, [facility] [place] [facility] [address] [id number] [place] [address] Dec, [facility] [place] [facility] [address] [id number] [place] [address] Dec, [facility] [place] [facility] [address] [id number] [place] [address] Nov, [facility] [place] [facility] [address] [id number] [place] [address] Nov, [facility] [place] [facility] [address] [id number] [place] [address] Nov, [facility] [place] [facility] [address] [id number] [place] [address] Nov, [facility] [place] [facility] [address] [id number] [place] [address] Nov, [facility] [place] [facility] [address] [facility] [id number] [place] [address] Nov, [facility] [place] [facility] [address] [id number] [place] [address] Nov, [facility] [place] [facility] [address] [id number] [place] [address] Oct, [facility] [place] [facility] [address] [facility] [id number] [place] [address] Sep, [facility] [place] [facility] [address] [id number] [place] [address] Sep, [facility] [place] [facility] [address] [id number] [address] Sep, [facility] [place] [facility] [address] [id number] [place] [address] Aug, [facility] [place] [facility] [address] [id number] [place] [address] Jul, [facility] [place] [facility] [address] [facility] [id number] [place] [address] Jul, [facility] [place] [facility] [address] [facility] [id number] [place] [address] Jul, IMMUNIZATIONS No Known Immunizations SOCIAL HISTORY Never Assessed REASON FOR VISIT back pain- started about 6 days ago- kid fell asleep on her back then she bent o amyte wrong and back has hurt since JStrasserRN PLAN OF CARE VITAL SIGNS Height 61 in 2017-04-26 Weight 149.4 lbs 2017-04-26 Temperature 98.3 degrees Fahrenheit 2017-04-26 Heart Rate 80 bpm 2017-04-26 Respiratory Rate 20 2017-04-26 BMI 28.23 kg/m2 2017-04-26 Blood pressure systolic 116 mmHg 2017-04-26 Blood pressure diastolic 72 mmHg 2017-04-26 MEDICATIONS Medication Instructions Dosage Frequency Start Date End Date Duration Status Cyclobenzaprine HCl 10 mg Orally 2 times a day 1 tablet as needed 12h Apr, Active PredniSONE 20 mg Orally Once a day 2 tablets 24h Apr, Apr, 05 days Active 1 Active Naproxen 500 mg Orally 2 times a day 1 tablet 12h Apr, Active RESULTS No Results PROCEDURES No Known procedures INSTRUCTIONS MEDICATIONS ADMINISTERED No Known Medications MEDICAL (GENERAL) HISTORY Type Description Date Surgical History cholecystectomy age 15 Surgical History bilateral tubal 2016 Hospitalization History Sx
--- OUTSIDE RECORDS SUMMARY | 2019-05-06 11:25 | XMS REPORT ---
Author Author SHANTEL APODACA [facility] Address [address] [place] [address] Care Team Providers Care Serology Technician Name Role Phone SHANTEL APODACA Unavailable PROBLEMS Type Condition ICD9-CM Code [id number] Code Onset Dates Condition Status SNOMED Code Problem Irregular menses N92.6 Active 79152219 Problem BMI 27.0-27.9,adult Z68.27 Active 432332939 Problem History of one miscarriage Z87.59 Active 329818622 Problem Counseling for control, oral contraceptives Z30.9 Active 034916401 Problem Anxiety state, unspecified F41.1 Active 530020448 Problem Otalgia, unspecified laterality H92.09 Active 12591635 Problem Female hirsutism L68.0 Active 48626539 Problem Cervical paraspinal muscle spasm M62.838 Active 165476298 Problem Lumbago with sciatica, left side M54.42 Active 092387238 Problem Family history of diabetes mellitus Z83.3 Active 115165761 Problem History of migraine Z86.69 Active 856213250 Problem Nexplanon insertion Z30.49 Active 828978328 Problem Allergic rhinitis J30.9 Active 56931059 ALLERGIES No Known Allergies ENCOUNTERS Encounter Location Date Diagnosis [facility] [id number] [place] [address] January, Sore throat J02.9 and Strep pharyngitis J02.0 [facility] [address] [place] [address] Dec, Cervical paraspinal muscle spasm M62.838 [facility] [id number] [address] Dec, Cervical paraspinal muscle spasm M62.838 [facility] [address] [place] [address] 10 Oct, 2017 Frequency of urination R35.0 ; Dysuria R30.0 and Acute right-sided low back pain without sciatica M54.5 [facility] [address] [address] Aug, Pharyngitis due to other organism J02.8 [facility] [address] [address] Apr, Lumbago with sciatica, left side M54.42 [facility] [address] [address] Dec, Sore throat J02.9 and Tonsillitis J03.[address] [address] Nov, Nexplanon removal Z30.46 and control counseling Z30.09 [facility] [address] [address] May, Acute non-recurrent maxillary sinusitis J01.00 [facility] [address] [address] January, Sore throat J02.9 and Fever, unspecified fever cause R50.[address] [address] Nov, [address] [address] 16 Nov, 2015 Chronic allergic rhinitis J30.9 [facility] [address] [address] 04 Nov, 2015 Pharyngitis J02.9 and Acute bacterial sinusitis J01.[address] [address] 14 Oct, 2015 Nexplanon insertion Z30.49 [facility] [address] [place] [address] Oct, Upper respiratory tract infection, unspecified type 465.9 ; Cough R05 and Allergic rhinitis J30.9 [place] [address] [place] [address] [id number] [place] [address] Oct, BMI 27.0-27.9,adult Z68.27 and Family history of diabetes mellitus Z83.3 [place] [address] [address] Oct, Well woman exam Z01.419 ; BMI 27.0-27.9,adult Z68.27 ; Family history of diabetes mellitus Z83.3 ; History of one miscarriage Z87.59 ; Irregular menses N92.6 ; Environmental allergies Z91.09 ; Cough R05 ; Female hirsutism L68.0 ; Acne, unspecified L70.9 ; Encounter for counseling regarding contraception Z30.9 and History of migraine Z86.69 [place] [id number] [place] [address] May, Environmental allergies V15.09 and Pharyngitis [address] [place] [address] [address] Apr, test positive V72.42 [place] [id number] [place] [address] Apr, Positive test V72.42 [place] [address] [address] Apr, Threatened miscarriage in early 640.03 [place] [address] [address] Apr, Positive test V72.42 [place] [address] [address] Apr, Positive test V72.42 [place] [address] [address] Apr, [facility] [address] [id number] [place] [address] Apr, test positive V72.42 [facility] [address] [id number] [place] [address] Dec, [facility] [address] [id number] [place] [address] Dec, [facility] [address] [id number] [place] [address] Oct, [facility] [address] [id number] [place] [address] Oct, [facility] [address] [id number] [place] [address] Oct, [facility] [address] [facility] [id number] [place] [address] Sep, [facility] [address] [id number] [place] [address] Sep, [facility] [address] [id number] [place] [address] Aug, [facility] [address] [facility] [id number] [place] [address] Aug, [facility] [address] [id number] [place] [address] Jun, [facility] [address] [id number] [place] [address] Jun, [facility] [address] [id number] [place] [address] Jun, [facility] [address] [id number] [place] [address] May, [facility] [address] [id number] [address] May, [facility] [address] [id number] [place] [address] Mar, [facility] [address] [id number] [place] [address] Nov, [facility] [place] [facility] [address] [id number] [place] [address] Oct, [facility] [address] [id number] [place] [address] Jun, [facility] [address] [id number] [place] [address] Jun, [facility] [address] [id number] [place] [address] Apr, [facility] [address] [id number] [place] [address] Apr, [facility] [address] [id number] [place] [address] Apr, [facility] [address] [id number] [place] [address] Apr, [facility] [address] [id number] [place] [address] Apr, [facility] [address] [id number] [place] [address] January, [facility] [address] [id number] [place] [address] January, [facility] [address] [id number] [place] [address] January, [facility] [place] [facility] [address] [id number] [place] [address] January, [facility] [place] [facility] [address] [id number] [place] [address] January, [facility] [address] [id number] [place] [address] Dec, [facility] [address] [id number] [place] [address] Dec, [facility] [place] [facility] [address] [id number] [place] [address] Dec, [facility] [place] [facility] [address] [id number] [place] [address] Dec, [facility] [place] [facility] [address] [id number] [place] [address] Dec, [facility] [place] [facility] [address] [id number] [place] [address] Dec, [facility] [place] [facility] [address] [id number] [place] [address] Nov, [facility] [place] [facility] [address] [id number] [place] [address] Nov, [facility] [place] [facility] [address] [id number] [place] [address] Nov, [facility] [place] [facility] [address] [id number] [place] [address] Nov, [facility] [place] [facility] [address] [id number] [place] [address] Nov, [facility] [place] [facility] [address] [id number] [place] [address] Nov, [facility] [place] [facility] [address] [id number] [place] [address] Nov, [facility] [place] [facility] [address] [id number] [place] [address] Oct, [facility] [place] [facility] [address] [id number] [place] [address] Sep, [facility] [place] [facility] [address] [id number] [place] [address] Sep, [facility] [place] [facility] [address] [facility] [id number] [address] Sep, [facility] [address] [facility] [id number], [place] [address] Aug, [facility] [address] [facility] [id number], [place] [address] Jul, [place] [address] [facility] [id number], [place] [address] Jul, [facility] [address] [facility] [id number] [address] Jul, IMMUNIZATIONS No Known Immunizations SOCIAL HISTORY Never Assessed REASON FOR VISIT Possible UTI Pt reports burning and frequency with urination for 3-4 days and t thania lower back pain JOCELYNE Solitario PLAN OF CARE Activity Details Follow Up prn Reason: VITAL SIGNS Height 61 in 2017-10-11 Weight 145.2 lbs 2017-10-11 Temperature 98.6 degrees Fahrenheit 2017-10-11 Heart Rate 80 bpm 2017-10-11 Respiratory Rate 18 2017-10-11 BMI 27.43 kg/m2 2017-10-11 Blood pressure systolic 118 mmHg 2017-10-11 Blood pressure diastolic 64 mmHg 2017-10-11 MEDICATIONS Medication Instructions Dosage Frequency Start Date End Date Duration Status Naproxen 500 mg Orally 2 times a day 1 tablet 12h Apr, Not-Taking Cyclobenzaprine HCl 10 mg Orally 2 times a day 1 tablet as needed 12h Apr, Not-Taking 1 Not-Taking Zyrtec Allergy 10 MG Orally Once a day 1 tablet as needed 24h Active Norgestimate-Eth Estradiol 0.25-35 MG-MCG Orally Once a day 1 tablet 24h Nov, 28 day(s) Not-Taking Flonase 50 mcg/actuation 1 sprays by Nasal route 2 times per day in each nostril May, Not-Taking Singulair 10 MG Orally Once a day 1 tablet in the evening 24h 16 Nov, 2015 Not-Taking RESULTS Name Result Date Reference Range UA LONG DIP (IN HOUSE) 2017-10-11 Lot # [id number] Exp date Clarity clear Color yellow Odor none GLU negative KINZA negative KET negative SG 1.020 BLO negative pH 5.5 Protein negative URO 0.2 NIT negative JOSE negative Lot # [id number] Exp date 12/2017 PROCEDURES Procedure Date Ordered Result Body Site URINALYSIS, AUTO, W/O SCOPE Oct 11, 2017 INSTRUCTIONS MEDICATIONS ADMINISTERED No Known Medications MEDICAL (GENERAL) HISTORY Type Description Date Surgical History cholecystectomy age 15 Surgical History bilateral tubal 2017 Hospitalization History Sx
--- OUTSIDE RECORDS SUMMARY | 2019-05-06 11:26 | XMS REPORT ---
Author Author NIDIA VANEGAS Organization [employer] Address Unknown Phone Unavailable Care Team Providers Care Cabin Service Agent Name Role Phone NIDIA VANEGAS CP Unavailable Allergies, Adverse Reactions, Alerts Substance Reaction Event Type N.K.D.A. Info Not Available Non Drug Allergy Problems Problem Type Condition Code Onset Dates Condition Status Problem Counseling for control, oral contraceptives Z30.9 Active Problem History of migraine Z86.69 Active Problem Otalgia, unspecified laterality H92.09 Active Assessment Acute non-recurrent maxillary sinusitis J01.00 Active Problem Anxiety state, unspecified F41.1 Active Problem Allergic rhinitis J30.9 Active Problem BMI 27.0-27.9,adult Z68.27 Active Problem Nexplanon insertion Z30.49 Active Problem Irregular menses N92.6 Active Problem Female hirsutism L68.0 Active Problem Family history of diabetes mellitus Z83.3 Active Problem History of one miscarriage Z87.59 Active Medications Medication Code System Code Instructions Start Date End Date Status Dosage Flonase NDC 0 50 mcg/actuation May 06, 2013 1 sprays by Nasal route 2 times per day in each nostril Singulair [facility] [address]-49 10 MG Orally Once a day Nov 17, 2015 1 tablet in the evening Zyrtec Allergy [facility] [address]-17 10 MG Orally Once a day 1 tablet as needed Augmentin [facility] [address]-17 875-125 MG Orally every 12 hrs May 23, 2016 Jun 02, 2016 1 tablet Procedures Procedure Coding System Code Date Office Visit, Est Pt., Level 3 CPT-4 60669 May 23, 2016 Vital Signs Date/Time: May 23, 2016 Cardiac Monitoring Heart Rate 78 bpm Weight 159.2 lbs Height 61 in BMI 30.08 Index Blood Pressure Diastolic 80 mmHg Blood Pressure Systolic 116 mmHg Results No Known Results Summary Purpose [employer] Submission
--- OUTSIDE RECORDS SUMMARY | 2019-05-06 11:26 | XMS REPORT ---
Author SAUNDRA Day [facility] eClinicalWorks Address Unknown Phone Unavailable Care Team Providers Care Lard Bleacher Name Role Phone SAUNDRA BRAR CP Unavailable Allergies, Adverse Reactions, Alerts Substance Reaction Event Type N.K.D.A. Info Not Available Non Drug Allergy Problems Problem Type Condition Code Onset Dates Condition Status Problem Counseling for control, oral contraceptives Z30.9 Active Problem History of migraine Z86.69 Active Problem Otalgia, unspecified laterality H92.09 Active Problem Allergic rhinitis J30.9 Active Problem BMI 27.0-27.9,adult Z68.27 Active Problem Nexplanon insertion Z30.49 Active Problem Irregular menses N92.6 Active Problem Female hirsutism L68.0 Active Problem Family history of diabetes mellitus Z83.3 Active Problem History of one miscarriage Z87.59 Active Assessment Acute bacterial sinusitis J01.90 Active Assessment Pharyngitis J02.9 Active Problem Anxiety state, unspecified F41.1 Active Medications Medication Code System Code Instructions Start Date End Date Status Dosage Flonase NDC 0 50 mcg/actuation May 06, 2013 1 sprays by Nasal route 2 times per day in each nostril Zyrtec Allergy [facility] [address]-01 10 MG Orally Once a day 1 tablet as needed Levaquin [facility] [address]-90 750 MG Orally Once a day Nov 05, 2015 Nov 10, 2015 1 tablet Procedures Procedure Coding System Code Date Office Visit, Est Pt., Level 3 CPT-4 52741 Nov 05, 2015 STREP A ASSAY W/OPTIC CPT-4 90626 Nov 05, 2015 Vital Signs Date/Time: Nov 05, 2015 Temperature 98.8 F Weight 143.8 lbs Height 61 in BMI 27.17 Index Blood Pressure Diastolic 70 mmHg Blood Pressure Systolic 118 mmHg Cardiac Monitoring Heart Rate 76 bpm Results Name Result Date Reference Range Unit Abnormality Flag STREP A (IN HOUSE) ----STREP A negative [id number] ----Control + [id number] ----Lot # [id number] ----Exp date [id number] Summary Purpose eClinicalWorks Submission
--- OUTSIDE RECORDS SUMMARY | 2019-05-06 11:26 | XMS REPORT ---
Author Author GOPAL TRIMBLE [facility] eClinicalWorks Address Unknown Phone Unavailable Care Team Providers Care Psychologist Research Assistant Name Role Phone GOPAL TRIMBLE Unavailable Allergies, Adverse Reactions, Alerts Substance Reaction Event Type N.K.D.A. Info Not Available Non Drug Allergy Problems Problem Type Condition Code Onset Dates Condition Status Assessment Well woman exam Z01.419 Active Problem Counseling for control, oral contraceptives Z30.9 Active Problem Anxiety state, unspecified F41.1 Active Problem Family history of diabetes mellitus Z83.3 Active Problem History of one miscarriage Z87.59 Active Problem BMI 27.0-27.9,adult Z68.27 Active Problem History of migraine Z86.69 Active Problem Otalgia, unspecified laterality H92.09 Active Problem Irregular menses N92.6 Active Problem Female hirsutism L68.0 Active Assessment Acne, unspecified L70.9 Active Assessment Female hirsutism L68.0 Active Assessment History of migraine Z86.69 Active Assessment Encounter for counseling regarding contraception Z30.9 Active Assessment Irregular menses N92.6 Active Assessment History of one miscarriage Z87.59 Active Assessment Cough R05 Active Assessment Family history of diabetes mellitus Z83.3 Active Assessment Environmental allergies Z91.09 Active Assessment BMI 27.0-27.9,adult Z68.27 Active Medications Medication Code System Code Instructions Start Date End Date Status Dosage Flonase NDC 0 50 mcg/actuation May 06, 2013 1 sprays by Nasal route 2 times per day in each nostril Zyrtec Allergy NDC [address]-07 10 MG Orally Once a day 1 tablet as needed Procedures Procedure Coding System Code Date COMPLETE CBC W/AUTO DIFF WBC CPT-4 37398 Oct 05, 2015 ASSAY THYROID STIM HORMONE CPT-4 69815 Oct 05, 2015 CHORIONIC GONADOTROPIN TEST CPT-4 06738 Oct 05, 2015 Preventive Care Est Pt. Age 18-39 CPT-4 83195 Oct 05, 2015 GONADOTROPIN (LH) CPT-4 17525 Oct 05, 2015 GONADOTROPIN (FSH) CPT-4 32322 Oct 05, 2015 VENIPUNCT, ROUTINE* CPT-4 87875 Oct 05, 2015 ASSAY OF TOTAL TESTOSTERONE CPT-4 38046 Oct 05, 2015 Vital Signs Date/Time: Oct 05, 2015 Temperature 99.0 F Weight 144.3 lbs Height 61 in BMI 27.26 Index Blood Pressure Diastolic 84 mmHg Blood Pressure Systolic 128 mmHg Cardiac Monitoring Heart Rate 76 bpm Results Name Result Date Reference Range Unit Abnormality Flag ROUTINE VENIPUNCTURE Summary Purpose eClinicalWorks Submission
--- OUTSIDE RECORDS SUMMARY | 2019-05-06 11:26 | XMS REPORT | Continuity of Care Document ---
Author Organization Unknown Address Unknown Phone Unavailable Allergies Active Description Code Type Severity Reaction Onset Reported/Identified Relationship to Patient Clinical Status Yes hydrocodone [id number] Drug Allergy Unknown N/A 05/31/2008 Yes hydrocodone [id number] Drug Allergy Mild N/V 05/01/2019 Medications There is no data. Problems Date Dx Coded Attending Type Code Diagnosis Diagnosed By 04/21/2008 V22.0 Pc Normal First 04/21/2008 V22.0 Pc Normal First 04/21/2008 V22.0 Pc Normal First 04/21/2008 V22.0 Pc Normal First 04/21/2008 LEOBARDO BROWNE DO V22.0 Pc Normal First 04/21/2008 LEOBARDO BROWNE DO V22.0 Pc Normal First 04/21/2008 LEOBARDO BROWNE DO V22.0 Pc Normal First 06/12/2008 650 Normal Delivery 06/12/2008 V27.0 Mother With Single Liveborn 06/12/2008 650 Normal Delivery 06/12/2008 V27.0 Mother With Single Liveborn 06/12/2008 650 Normal Delivery 06/12/2008 V27.0 Mother With Single Liveborn 06/12/2008 650 Normal Delivery 06/12/2008 V27.0 Mother With Single Liveborn 06/12/2008 LEOBARDO BROWNE DO 650 Normal Delivery 06/12/2008 LEOBARDO BROWNE DO V27.0 Mother With Single Liveborn 06/12/2008 LEOBARDO BROWNE DO 650 Normal Delivery 06/12/2008 LEOBARDO BROWNE DO V27.0 Mother With Single Liveborn 06/12/2008 LEOBARDO BROWNE DO 650 Normal Delivery 06/12/2008 LEOBARDO BROWNE DO V27.0 Mother With Single Liveborn 08/13/2008 V25.40 Contraceptive Surveillance Unspecified 08/13/2008 V25.40 Contraceptive Surveillance Unspecified 08/13/2008 V25.40 Contraceptive Surveillance Unspecified 08/13/2008 V25.40 Contraceptive Surveillance Unspecified 08/13/2008 LEOBARDO BROWNE DO V25.40 Contraceptive Surveillance Unspecified 08/13/2008 LEOBARDO BROWNE DO V25.40 Contraceptive Surveillance Unspecified 08/13/2008 LEOBARDO BROWNE DO V25.40 Contraceptive Surveillance Unspecified 10/22/2008 V72.31 Routine Pelvic Exam With Cervical Pap Smear 10/22/2008 V72.31 Routine Pelvic Exam With Cervical Pap Smear 10/22/2008 V72.31 Routine Pelvic Exam With Cervical Pap Smear 10/22/2008 V72.31 Routine Pelvic Exam With Cervical Pap Smear 10/22/2008 LEOBARDO BROWNE DO V72.31 Routine Pelvic Exam With Cervical Pap Smear 10/22/2008 LEOBARDO BROWNE DO V72.31 Routine Pelvic Exam With Cervical Pap Smear 10/22/2008 LEOBARDO BROWNE DO V72.31 Routine Pelvic Exam With Cervical Pap Smear 06/03/2009 599.0 Urinary Tract Infection 06/03/2009 599.0 Urinary Tract Infection 06/03/2009 599.0 Urinary Tract Infection 06/03/2009 599.0 Urinary Tract Infection 06/03/2009 LEOBARDO BROWNE DO 599.0 Urinary Tract Infection 06/03/2009 LEOBARDO BROWNE DO 599.0 Urinary Tract Infection 06/03/2009 LEOBARDO BROWNE DO 599.0 Urinary Tract Infection 12/31/2009 465.9 Acute Upper Respiratory Infections Of Unspecified Site 12/31/2009 465.9 Acute Upper Respiratory Infections Of Unspecified Site 12/31/2009 465.9 Acute Upper Respiratory Infections Of Unspecified Site 12/31/2009 465.9 Acute Upper Respiratory Infections Of Unspecified Site 12/31/2009 LEOBARDO BROWNE DO 465.9 Acute Upper Respiratory Infections Of Unspecified Site 12/31/2009 LEOBARDO BROWNE DO 465.9 Acute Upper Respiratory Infections Of Unspecified Site 12/31/2009 LEOBARDO BROWNE DO K 465.9 Acute Upper Respiratory Infections Of Unspecified Site 03/08/2010 V74.1 Screening Examination For Pulmonary Tuberculosis 03/08/2010 V74.1 Screening Examination For Pulmonary Tuberculosis 03/08/2010 V74.1 Screening Examination For Pulmonary Tuberculosis 03/08/2010 V74.1 Screening Examination For Pulmonary Tuberculosis 03/08/2010 LEOBARDO BROWNE DO V74.1 Screening Examination For Pulmonary Tuberculosis 03/08/2010 LEOBARDO BROWNE DO V74.1 Screening Examination For Pulmonary Tuberculosis 03/08/2010 BROWNE DO, LEOBARDO K V74.1 Screening Examination For Pulmonary Tuberculosis 07/06/2010 729.5 Pain In Limb 07/06/2010 729.5 Pain In Limb 07/06/2010 729.5 Pain In Limb 07/06/2010 729.5 Pain In Limb 07/06/2010 BROWNE DO, LEOBARDO K 729.5 Pain In Limb 07/06/2010 BROWNE DO, LEOBARDO K 729.5 Pain In Limb 07/06/2010 BROWNE DO, LEOBARDO K 729.5 Pain In Limb 06/20/2011 V72.42 Test Positive Result 06/20/2011 V72.42 Test Positive Result 06/20/2011 V72.42 Test Positive Result 06/20/2011 V72.42 Test Positive Result 06/20/2011 BROWNE DOSHERMANA K V72.42 Test Positive Result 06/20/2011 BROWNE DOSHERMANA K V72.42 Test Positive Result 06/20/2011 BROWNE DOSHERMANA K V72.42 Test Positive Result 06/28/2011 787.02 Nausea Alone 06/28/2011 V22.1 , NORMAL OTHER 06/28/2011 787.02 Nausea Alone 06/28/2011 V22.1 , NORMAL OTHER 06/28/2011 787.02 Nausea Alone 06/28/2011 V22.1 , NORMAL OTHER 06/28/2011 787.02 Nausea Alone 06/28/2011 V22.1 , NORMAL OTHER 06/28/2011 SHERMAN BROWNE DOA K 787.02 Nausea Alone 06/28/2011 BROWNE DO LEOBARDO K V22.1 , NORMAL OTHER 06/28/2011 BROWNE DO LEOBARDO K 787.02 Nausea Alone 06/28/2011 BROWNE DO, LEOBARDO K V22.1 , NORMAL OTHER 06/28/2011 BROWNE DO LEOBARDO K 787.02 Nausea Alone 06/28/2011 BROWNE DO, LEOBARDO K V22.1 , NORMAL OTHER 06/30/2011 656.13 RH NEGATIVE 06/30/2011 656.13 RH NEGATIVE 06/30/2011 656.13 RH NEGATIVE 06/30/2011 656.13 RH NEGATIVE 06/30/2011 BROWNE DO, LEOBARDO K 656.13 RH NEGATIVE 06/30/2011 PAVAN LAUREN LEOBARDO K 656.13 RH NEGATIVE 06/30/2011 PAVAN LAUREN LEOBARDO K 656.13 RH NEGATIVE 07/05/2011 461.9 Sinusitis Acute 07/05/2011 461.9 Sinusitis Acute 07/05/2011 461.9 Sinusitis Acute 07/05/2011 461.9 Sinusitis Acute 07/05/2011 LEOBARDO BROWNE DO K 461.9 Sinusitis Acute 07/05/2011 BROWNE SHERMAN LAURENA K 461.9 Sinusitis Acute 07/05/2011 BROWNE SHERMAN LAURENA K 461.9 Sinusitis Acute 07/20/2011 V04.81 FLU DX (3 YRS AND ABOVE, IM) 07/20/2011 V74.5 Std Screen 07/20/2011 V76.2 Cervical Cancer Screening (pap Smear) 07/20/2011 V04.81 FLU DX (3 YRS AND ABOVE, IM) 07/20/2011 V74.5 Std Screen 07/20/2011 V76.2 Cervical Cancer Screening (pap Smear) 07/20/2011 V04.81 FLU DX (3 YRS AND ABOVE, IM) 07/20/2011 V74.5 Std Screen 07/20/2011 V76.2 Cervical Cancer Screening (pap Smear) 07/20/2011 V04.81 FLU DX (3 YRS AND ABOVE, IM) 07/20/2011 V74.5 Std Screen 07/20/2011 V76.2 Cervical Cancer Screening (pap Smear) 07/20/2011 LEOBARDO BROWNE DO V04.81 FLU DX (3 YRS AND ABOVE, IM) 07/20/2011 LEOBARDO BROWNE DO K V74.5 Std Screen 07/20/2011 SHERMAN BROWNE DOA K V76.2 Cervical Cancer Screening (pap Smear) 07/20/2011 SHERMAN BROWNE DOA K V04.81 FLU DX (3 YRS AND ABOVE, IM) 07/20/2011 SHERMAN BROWNE DOA K V74.5 Std Screen 07/20/2011 SHERMAN BROWNE DOA K V76.2 Cervical Cancer Screening (pap Smear) 07/20/2011 SHERMAN BROWNE DOA K V04.81 FLU DX (3 YRS AND ABOVE, IM) 07/20/2011 LEOBARDO BROWNE DO K V74.5 Std Screen 07/20/2011 LEOBARDO BROWNE DO V76.2 Cervical Cancer Screening (pap Smear) 07/27/2011 795.03 ABNORMAL PAP - LGSIL 07/27/2011 795.03 ABNORMAL PAP - LGSIL 07/27/2011 795.03 ABNORMAL PAP - LGSIL 07/27/2011 795.03 ABNORMAL PAP - LGSIL 07/27/2011 LEOBARDO BROWNE DO 795.03 ABNORMAL PAP - LGSIL 07/27/2011 LEOBARDO BROWNE DO 795.03 ABNORMAL PAP - LGSIL 07/27/2011 LEOBARDO BROWNE DO 795.03 ABNORMAL PAP - LGSIL 11/30/2011 V77.1 Diabetes Screening 11/30/2011 V78.0 Anemia Screening 11/30/2011 V77.1 Diabetes Screening 11/30/2011 V78.0 Anemia Screening 11/30/2011 V77.1 Diabetes Screening 11/30/2011 V78.0 Anemia Screening 11/30/2011 V77.1 Diabetes Screening 11/30/2011 V78.0 Anemia Screening 11/30/2011 LEOBARDO BROWNE DO V77.1 Diabetes Screening 11/30/2011 LEOBARDO BROWNE DO V78.0 Anemia Screening 11/30/2011 LEOBARDO BROWNE DO V77.1 Diabetes Screening 11/30/2011 LEOBARDO BROWNE DO V78.0 Anemia Screening 11/30/2011 LEOBARDO BROWNE DO V77.1 Diabetes Screening 11/30/2011 LEOBARDO BROWNE DO V78.0 Anemia Screening 01/17/2012 V28.6 Gbs Screening 01/17/2012 V28.6 Gbs Screening 01/17/2012 V28.6 Gbs Screening 01/17/2012 V28.6 Gbs Screening 01/17/2012 LEOBARDO BROWNE DO V28.6 Gbs Screening 01/17/2012 LEOBARDO BROWNE DO V28.6 Gbs Screening 01/17/2012 LEOBARDO BROWNE DO V28.6 Gbs Screening 02/19/2012 Ot 664.01 DEL W 1 DEG LACERAT- DEL 02/19/2012 Ot V06.1 [id number], COMBINED [ 02/19/2012 Ot V27.0 DELIVER-SINGLE LIVEBORN 04/16/2012 300.00 ANXIETY UNSPEC 04/16/2012 616.10 VAGINITIS VULVOVAGINITIS UNSPECIFIED 04/16/2012 V25.01 CONTRACEPTION - ORAL CONTRACEPTION 04/16/2012 V76.2 CERVICAL CANCER SCREENING (PAP SMEAR) 04/16/2012 300.00 ANXIETY UNSPEC 04/16/2012 616.10 VAGINITIS VULVOVAGINITIS UNSPECIFIED 04/16/2012 V25.01 CONTRACEPTION - ORAL CONTRACEPTION 04/16/2012 V76.2 CERVICAL CANCER SCREENING (PAP SMEAR) 04/16/2012 300.00 ANXIETY UNSPEC 04/16/2012 616.10 VAGINITIS VULVOVAGINITIS UNSPECIFIED 04/16/2012 V25.01 CONTRACEPTION - ORAL CONTRACEPTION 04/16/2012 V76.2 CERVICAL CANCER SCREENING (PAP SMEAR) 04/16/2012 300.00 ANXIETY UNSPEC 04/16/2012 616.10 VAGINITIS VULVOVAGINITIS UNSPECIFIED 04/16/2012 V25.01 CONTRACEPTION - ORAL CONTRACEPTION 04/16/2012 V76.2 CERVICAL CANCER SCREENING (PAP SMEAR) 04/16/2012 LEOBARDO BROWNE DO 300.00 ANXIETY UNSPEC 04/16/2012 LEOBARDO BROWNE DO 616.10 VAGINITIS VULVOVAGINITIS UNSPECIFIED 04/16/2012 LEOBARDO BROWNE DO K V25.01 CONTRACEPTION - ORAL CONTRACEPTION 04/16/2012 SHERMAN BROWNE DOA K V76.2 CERVICAL CANCER SCREENING (PAP SMEAR) 04/16/2012 SHERMAN BROWNE DOA K 300.00 ANXIETY UNSPEC 04/16/2012 SHERMAN BROWNE DOA K 616.10 VAGINITIS VULVOVAGINITIS UNSPECIFIED 04/16/2012 LEOBARDO BROWNE DO K V25.01 CONTRACEPTION - ORAL CONTRACEPTION 04/16/2012 SHERMAN BROWNE DOA K V76.2 CERVICAL CANCER SCREENING (PAP SMEAR) 04/16/2012 SHERMAN BROWNE DOA K 300.00 ANXIETY UNSPEC 04/16/2012 SHERMAN BROWNE DOA K 616.10 VAGINITIS VULVOVAGINITIS UNSPECIFIED 04/16/2012 SHERMAN BROWNE DOA K V25.01 CONTRACEPTION - ORAL CONTRACEPTION 04/16/2012 SHERMAN BROWNE DOA K V76.2 CERVICAL CANCER SCREENING (PAP SMEAR) 10/12/2012 V25.9 CONTRACEPTION MANAGEMENT 10/12/2012 V25.9 CONTRACEPTION MANAGEMENT 10/12/2012 V25.9 CONTRACEPTION MANAGEMENT 10/12/2012 V25.9 CONTRACEPTION MANAGEMENT 10/12/2012 BROWNE DO, LEOBARDO K V25.9 CONTRACEPTION MANAGEMENT 10/12/2012 BROWNE DO, LEOBARDO K V25.9 CONTRACEPTION MANAGEMENT 10/12/2012 BROWNE DO, LEOBARDO K V25.9 CONTRACEPTION MANAGEMENT 05/06/2013 388.70 OTALGIA 05/06/2013 477.9 ALLERGIC RHINITIS CAUSE UNSPECIFIED 05/06/2013 BROWNE DO, LEOBARDO K 388.70 OTALGIA 05/06/2013 BROWNE DO, LEOBARDO K 477.9 ALLERGIC RHINITIS CAUSE UNSPECIFIED 05/06/2013 BROWNE DO, LEOBARDO K 388.70 OTALGIA 05/06/2013 BROWNE DO, LEOBARDO K 477.9 ALLERGIC RHINITIS CAUSE UNSPECIFIED 05/06/2013 BROWNE DO, LEOBARDO K 388.70 OTALGIA 05/06/2013 BROWNE DO, LEOBARDO K 477.9 ALLERGIC RHINITIS CAUSE UNSPECIFIED 06/21/2013 BROWNE DO, LEOBARDO K 692.9 DERMATITIS CONTACT UNSPECIFIED 06/21/2013 BROWNE DO, LEOBARDO K 692.9 DERMATITIS CONTACT UNSPECIFIED 06/21/2013 BROWNE DO, LEOBARDO K 692.9 DERMATITIS CONTACT UNSPECIFIED 06/24/2013 BROWNE DO, LEOBARDO K V25.49 CONTRACEPTION SURVEILLANCE (REPEAT RX) 06/24/2013 BROWNE DO, LEOBARDO K V25.49 CONTRACEPTION SURVEILLANCE (REPEAT RX) 12/07/2015 DIXIE LANDRY Ot J30.9 02/09/2016 NIDIA VANEGAS UPHOLSTERY CLEANER Ot J02.9 ACUTE PHARYNGITIS, UNSPECIFIED 02/09/2016 NIDIA VANEGAS UPHOLSTERY CLEANER Ot R50.9 FEVER, UNSPECIFIED 2016 NIDIA VANEGAS UPHOLSTERY CLEANER Ot J02.9 ACUTE PHARYNGITIS, UNSPECIFIED 2016 NIDIA VANEGAS UPHOLSTERY CLEANER Ot R50.9 FEVER, UNSPECIFIED 02/19/2016 NIDIA VANEGAS UPHOLSTERY CLEANER Ot J02.9 ACUTE PHARYNGITIS, UNSPECIFIED 02/19/2016 NIDIA VANEGAS UPHOLSTERY CLEANER Ot R50.9 FEVER, UNSPECIFIED 09/15/2016 DIXIE LANDRY Ot J30.9 ALLERGIC RHINITIS, UNSPECIFIED 09/15/2016 NIDIA VANEGAS UPHOLSTERY CLEANER Ot J02.9 ACUTE PHARYNGITIS, UNSPECIFIED 09/15/2016 NIDIA VANEGAS JAMES Ot R50.9 FEVER, UNSPECIFIED 09/16/2016 FRANSISCO ANGULO, MOHSEN Peterson Ot 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), 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 09/27/2016 MOHSEN MOODY MD Ot 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), 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 08/01/2018 MOHSEN MOODY MD Ot 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), 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 08/01/2018 MOHSEN MOODY MD Ot M89.9 DISORDER OF BONE, UNSPECIFIED 08/15/2018 MOHSEN MOODY MD Ot 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), 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 08/15/2018 MOHESN MOODY MD Ot M89.9 DISORDER OF BONE, UNSPECIFIED 04/29/2019 MOHSEN MOODY MD Ot 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), 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 04/29/2019 MOHSEN MOODY MD Ot M89.9 DISORDER OF BONE, UNSPECIFIED 05/01/2019 MOHSEN MOODY MD Ot 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), 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 05/01/2019 MOHSEN MOODY MD Ot M89.9 DISORDER OF BONE, UNSPECIFIED 05/03/2019 JESSICA MARTIN MD, Ot 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, UNSPECIFIED 05/03/2019 JESSICA MARTIN MD, Ot Z01.812 ENCOUNTER FOR PREPROCEDURAL LABORATORY E Procedures Code Description Performed By Performed On 75.69 REPAIR OB LACERATION NEC 02/18/2012 41145 THERAPUTIC INJ SQ/IM 10/12/2012 J1055 DEPO-PROVERA INJ 150 MG 10/12/2012 22745 URINE TEST (IN-HOUSE) 10/12/2012 30215 URINE TEST (IN-HOUSE) 10/12/2012 J1050 DEPO PROVERA 12/29/2012 08881 THERAPUTIC INJ SQ/IM 12/29/2012 52285 URINE TEST (IN-HOUSE) 12/29/2012 73467 URINE TEST (IN-HOUSE) 03/27/2013 J1050 DEPO PROVERA 03/27/2013 72527 THERAPUTIC INJ SQ/IM 03/27/2013 22409 URINE TEST (IN-HOUSE) 06/24/2013 00997 THERAPUTIC INJ SQ/IM 06/24/2013 J1050 DEPO PROVERA 06/24/2013 22043 URINE TEST (IN-HOUSE) 09/30/2013 J1050 DEPO PROVERA 09/30/2013 57440 THERAPUTIC INJ SQ/IM 09/30/2013 40729 PAP SMEAR 10/03/2013 Q0091 PAP SMEAR OBTAIN SMEAR 10/07/2013 Results Test Result Range Complete blood count (CBC) with automated white blood cell (WBC) differential - 05/01/19 12:00 Blood leukocytes automated count (number/volume) 7.1 10*3/uL 4.3-11.0 Blood erythrocytes automated count (number/volume) 4.68 10*6/uL 4.35-5.85 Venous blood hemoglobin measurement (mass/volume) 14.1 g/dL 11.5-16.0 Blood hematocrit (volume fraction) 40 % 35-52 Automated erythrocyte mean corpuscular volume 86 [foz_us] 80-99 Automated erythrocyte mean corpuscular hemoglobin (mass per erythrocyte) 30 pg 25-34 Automated erythrocyte mean corpuscular hemoglobin concentration measurement (mass/volume) 35 g/dL 32-36 Automated erythrocyte distribution width ratio 12.7 % 10.0- 14.5 Automated blood platelet count (count/volume) 253 10*3/uL 130-400 Automated blood platelet mean volume measurement 11.4 [foz_us] 7.4-10.4 Automated blood neutrophils/100 leukocytes 58 % 42-75 Automated blood lymphocytes/100 leukocytes 32 % 12-44 Blood monocytes/100 leukocytes 9 % 0-12 Automated blood eosinophils/100 leukocytes 1 % 0-10 Automated blood basophils/100 leukocytes 0 % 0-10 Blood neutrophils automated count (number/volume) 4.1 10*3 1.8-7.8 Blood lymphocytes automated count (number/volume) 2.2 10*3 1.0-4.0 Blood monocytes automated count (number/volume) 0.6 10*3 0.0- 1.0 Automated eosinophil count 0.1 10*3/uL 0.0-0.3 Automated blood basophil count (count/volume) 0.0 10*3/uL 0.0-0.1 Blood type T Indirect antibody screen panel - 05/01/19 12:00 ABO+Rh group ON NRG Blood group antibody screen NEGATIVE NRG Methicillin resistant Staphylococcus aureus (MRSA) screening culture - 05/01/19 12:00 Methicillin resistant Staphylococcus aureus (MRSA) screening culture NEG NRG Encounters ACCT No. Visit Date/Time Discharge Status Pt. Type Provider Facility Loc./Unit Complaint [id number] 09/30/2013 11:12:00 09/30/2013 23:59:59 CLS Outpatient LEOBARDO BROWNE DO [id number] 06/24/2013 15:21:00 06/24/2013 23:59:59 CLS Outpatient LEOBARDO BROWNE DO [id number] 06/21/2013 09:20:00 06/21/2013 23:59:59 CLS Outpatient LEOBARDO BROWNE DO [id number] 12/29/2012 11:48:00 12/29/2012 23:59:59 CLS Outpatient [id number] 10/12/2012 14:57:00 10/12/2012 23:59:59 CLS Outpatient [id number] 05/06/2013 13:46:00 Document Registration [id number] 03/27/2013 12:09:00 Document Registration [id number] 12/13/2018 10:20:00 12/13/2018 23:59:59 CLS Out[facility] GISELE ANGULO[facility] [id number] 08/15/2014 18:23:00 08/15/2014 23:59:59 CLS Outpatient KAYLYN TAYLOR DO [facility] QUICK [id number] 05/01/2019 11:16:00 05/01/2019 16:00:00 DIS Outpatient JESSICA MARTIN MD [facility] PREOP CIN2,CIN3 [id number] 07/16/2018 10:05:00 07/16/2018 23:59:59 CLS Outpatient MOHSEN MOODY MD [facility] RAD REPEAT CT SINUS FIBROUS DYSPLASIA [id number] 09/15/2016 14:36:00 09/15/2016 23:59:59 CLS Outpatient MOHSEN MOODY MD [facility] RAD FIBROUS DYSPLASIA [id number] 02/08/2016 09:17:00 02/08/2016 23:59:59 CLS Outpatient NIDIA VANEGAS APRN [facility] LAB SORE THROAT, FEVER [id number] 11/25/2015 13:03:00 11/25/2015 23:59:59 CLS Outpatient DIXIE LANDRY [facility] RAD CHRONIC ALLERGIC RHINITIS [id number] 05/06/2019 13:00:00 JESSICA Johns MD [facility] CIN2, CIN3 [id number] 02/18/2012 02:30:00 Document Registration
--- OUTSIDE RECORDS SUMMARY | 2019-05-06 11:26 | XMS REPORT ---
Author Author GOPAL TRIMBLE Organization [employer] Address Unknown Phone Unavailable Care Team Providers Care Manager Occupational Name Role Phone GOPAL TRIMBLE CP Unavailable Allergies, Adverse Reactions, Alerts Substance Reaction Event Type N.K.D.A. Info Not Available Non Drug Allergy Problems Problem Type Condition Code Onset Dates Condition Status Problem Counseling for control, oral contraceptives Z30.9 Active Problem History of migraine Z86.69 Active Problem Otalgia, unspecified laterality H92.09 Active Assessment Nexplanon insertion Z30.49 Active Problem Anxiety state, unspecified F41.1 Active [...] day in each nostril Zyrtec Allergy NDC [address]-65 10 MG Orally Once a day 1 tablet as needed Procedures Procedure Coding System Code Date INSERT DRUG IMPLANT DEVICE CPT-4 04166 Oct 15, 2015 URINE TEST CPT-4 38342 Oct 15, 2015 ETONOGESTREL IMPLANT SYSTEM CPT-4 J7307 Oct 15, 2015 Vital Signs Date/Time: Oct 15, 2015 Temperature 98.1 F Weight 144.2 lbs Height 61 in BMI 27.24 Index Blood Pressure Diastolic 70 mmHg Blood Pressure Systolic 104 mmHg Cardiac Monitoring Heart Rate 80 bpm Results Name Result Date Reference Range Unit Abnormality Flag TEST, URINE (IN HOUSE) ----RESULTS Negative [id number] ----Lot # [id number] ----Control + [id number] ----Exp date [id number] Summary Purpose eClinicalWorks Submission
--- OUTSIDE RECORDS SUMMARY | 2019-05-06 11:26 | XMS REPORT ---
Author Author PHIL MCCRAY [facility] Address [address] [place] [address] Care Team Providers Care Forestry Pilot Name Role Phone PHIL MCCRAY Unavailable PROBLEMS Type Condition ICD9-CM Code [id number] Code Onset Dates Condition Status SNOMED Code Problem History of one miscarriage Z87.59 Active 179951241 Problem Irregular menses N92.6 Active 59932311 Problem Female hirsutism L68.0 Active 66629206 Problem Counseling for control, oral contraceptives Z30.9 Active 626324054 Problem Anxiety state, unspecified F41.1 Active 011180088 Problem Otalgia, unspecified laterality H92.09 Active 61998608 Problem Lumbago with sciatica, left side M54.42 Active 988540485 Problem Nexplanon insertion Z30.49 Active 412318627 Problem History of migraine Z86.69 Active 701167119 Problem BMI 27.0-27.9,adult Z68.27 Active 787118636 Problem Allergic rhinitis J30.9 Active 94278679 Problem Family history of diabetes mellitus Z83.3 Active 844851713 ALLERGIES No Known Allergies SOCIAL HISTORY Never Assessed PLAN OF CARE Activity Details Follow Up prn Reason: VITAL SIGNS Height 61 in 2016-12-22 Weight 177.9 lbs 2016-12-22 Temperature 98.4 degrees Fahrenheit 2016-12-22 Heart Rate 80 bpm 2016-12-22 Respiratory Rate 18 2016-12-22 BMI 33.61 kg/m2 2016-12-22 Blood pressure systolic 120 mmHg 2016-12-22 Blood pressure diastolic 72 mmHg 2016-12-22 MEDICATIONS Medication Instructions Dosage Frequency Start Date End Date Duration Status Zyrtec Allergy 10 MG Orally Once a day 1 tablet as needed 24h Active Norgestimate-Eth Estradiol 0.25-35 MG-MCG Orally Once a day 1 tablet 24h Nov, 28 day(s) Active RESULTS Name Result Date Reference Range TEST, URINE (IN HOUSE) 2016-12-22 RESULTS Negative Lot # [id number] Control + Exp date 12/2017 PROCEDURES Procedure Date Ordered Result Body Site URINE TEST December 22, 2016 REMOVE DRUG IMPLANT DEVICE December 22, 2016 IMMUNIZATIONS No Known Immunizations MEDICAL (GENERAL) HISTORY Type Description Date Surgical History cholecystectomy age 15 Hospitalization History Sx
--- OUTSIDE RECORDS SUMMARY | 2019-05-06 11:26 | XMS REPORT ---
Author Author GOPAL TRIMBLE Organization [employer] Address Unknown Phone Unavailable Care Team Providers Care Spares Scheduler Name Role Phone GOPAL TRIMBLE CP Unavailable Allergies No Known Allergies Problems Problem Type Condition Code Onset Dates Condition Status Problem Anxiety state, unspecified F41.1 Active Problem Otalgia, unspecified laterality H92.09 Active Problem Counseling for control, oral contraceptives Z30.9 Active Assessment Family history of diabetes mellitus Z83.3 Active Assessment BMI 27.0-27.9,adult Z68.27 Active Problem BMI 27.0-27.9,adult Z68.27 Active Problem Family history of diabetes mellitus Z83.3 Active Problem Allergic rhinitis J30.9 Active Problem Female hirsutism L68.0 Active Problem History of migraine Z86.69 Active Problem History of one miscarriage Z87.59 Active Problem Irregular menses N92.6 Active Medications No Known Medications Procedures Procedure Coding System Code Date LIPID PANEL CPT-4 93703 Oct 07, 2015 COMPREHEN METABOLIC PANEL CPT-4 49929 Oct 07, 2015 GLYCATED HEMOGLOBIN TEST CPT-4 49755 Oct 07, 2015 VENIPUNCT, ROUTINE* CPT-4 96746 Oct 07, 2015 Results Name Result Date Reference Range Unit Abnormality Flag ROUTINE VENIPUNCTURE Summary Purpose [employer] Submission
--- OUTSIDE RECORDS SUMMARY | 2019-05-06 11:26 | XMS REPORT ---
Author MARCELLUS Croft Organization [employer] Address Unknown Phone Unavailable Care Team Providers Care Hospitality Services Manager Name Role Phone MARCELLUS STOREY CP Unavailable Allergies, Adverse Reactions, Alerts Substance Reaction Event Type N.K.D.A. Info Not Available Non Drug Allergy Problems Problem Type Condition Code Onset Dates Condition Status Problem Anxiety state, unspecified F41.1 Active Problem Otalgia, unspecified laterality H92.09 Active Problem Counseling for control, oral contraceptives Z30.9 Active Problem BMI 27.0-27.9,adult Z68.27 Active Problem Family history of diabetes mellitus Z83.3 Active Problem Allergic rhinitis J30.9 Active Problem Female hirsutism L68.0 Active Problem History of migraine Z86.69 Active Problem History of one miscarriage Z87.59 Active Problem Irregular menses N92.6 Active Assessment Allergic rhinitis J30.9 Active Assessment Cough R05 Active Assessment Upper respiratory tract infection, unspecified type 465.9 Active Medications Medication Code System Code Instructions Start Date End Date Status [place] [address]-01 10 MG Orally Once a day 1 [place] [address]-58 250 MG Orally Once a day Oct 07, 2015 Oct 12, 2015 2 tablets on the first day, then 1 tablet daily for 4 days Flonase NDC 0 50 mcg/actuation May 06, 2013 1 sprays by Nasal route 2 times per day in each nostril Procedures Procedure Coding System Code Date Office Visit, Est Pt., Level 3 CPT-4 22568 Oct 07, 2015 Vital Signs Date/Time: Oct 07, 2015 Temperature 98.8 F Weight 141.8 lbs Height 61 in BMI 26.79 Index Blood Pressure Diastolic 68 mmHg Blood Pressure Systolic 106 mmHg Cardiac Monitoring Heart Rate 78 bpm Results No Known Results Summary Purpose [employer] Submission
[2019-05-06] MEDS ORDERED: ceFAZolin INJECTION 1,000 MG in WATER (STERILE) FOR INJECTION 10 ML IV ONE (11:30)
[2019-05-06] MEDS: LACTATED RINGERS 1,000 ML IV PRN ×2 (11:55→14:10)
[2019-05-06] MEDS ORDERED: LIDOCAINE PF 2% 5 ML (XYLOCAINE) VIAL ONE (11:58)
[2019-05-06] MEDS ORDERED: proPOfol 200 MG/20 ML (DIPRIVAN) VIAL IV ONE (11:58)
[2019-05-06] MEDS ORDERED: MIDAZOLAM 2 MG/2 ML (VERSED) VIAL ONE (11:58)
[2019-05-06] MEDS ORDERED: fentaNYL INJECTION 100 MCG/2 ML AMP ONE (11:58)
[2019-05-06] MEDS ORDERED: ONDANSETRON 4 MG/2 ML (SDV) Z0FRAN ONE ×2 (12:06→13:37)
[2019-05-06] MEDS ORDERED: FAMOTIDINE 20MG/2ML IV (PEPCID) ONE (12:06)
[2019-05-06] MEDS ORDERED: SCOPOLAMINE 1.5 MG (TRANSDERM-SCOP) PATCH ONE (12:06)
[2019-05-06] MEDS ORDERED: FAMOTIDINE 20MG/2ML IV (PEPCID) IV ONE (12:15)
[2019-05-06] MEDS ORDERED: ONDANSETRON 4 MG/2 ML (SDV) Z0FRAN IV ONE (12:15)
[2019-05-06] MEDS ORDERED: SCOPOLAMINE 1.5 MG (TRANSDERM-SCOP) PATCH TOP ONE (12:15)
[2019-05-06] MEDS ORDERED: BUP/EPI 0.5% 1:200,000 (MARCAINE) 10ML VIAL IJ ONE (12:25)
[2019-05-06] MEDS ORDERED: DEXAMETHASONE 10 MG/ML (DECADRON) 1 ML VIAL ONE (13:37)
[2019-05-06] MEDS ORDERED: ROCURONIUM 10 MG/ML 5 ML SYRINGE IV ONE (13:37)
[2019-05-06] MEDS ORDERED: SEVOFLURANE (ULTANE) 15 ML INHAL SOLN ONE (14:18)
[2019-05-06] MEDS ORDERED: morphine INJ 10 MG/ML 1ML (SYR OR VIAL) IVP ONE (15:00)
[2019-05-06] MEDS ORDERED: KETOROLAC 30 MG/ML VIAL IVP ONE (15:00)
[2019-05-06] MEDS ORDERED: ONDANSETRON 4 MG/2 ML (SDV) Z0FRAN IVP PRN ×2 (15:00→15:15)
[2019-05-06] MEDS ORDERED: D5 LR IV SOLUTION 1,000 ML IV SCH (15:07)
[2019-05-06] MEDS ORDERED: MEPERIDINE (DEMEROL) INJ 100 MG/ML IM PRN (15:15)
[2019-05-06] MEDS ORDERED: oxyCODONE/APAP 5/325MG (PERCOCET 5) TABLET PO PRN (15:15)
[2019-05-06] MEDS ORDERED: PROMETHAZINE INJ 25 MG/ML (PHENERGAN) AMP IM PRN (15:15)
[2019-05-06] MEDS: KETOROLAC 30 MG/ML VIAL IVP SCH ×2 (15:17→20:42)
--- NOTE | 2019-05-06 15:50 | NUR ---
DEBBIE ROLAND admitted to room 3306-1, with an admitting diagnosis of POSTOP HYSTERECTOMY, on 05-06-19 from [facility] via [facility], accompanied by NURSING STAFF. DEBBIE ROLAND introduced to surroundings, call light, bed controls, phone, TV, temperature control, lights, meal times, smoking policy, visitor policy, side rail policy, bathrooms and showers. Patient Rights given to patient in the handbook. DEBBIE ROLAND verbalizes understanding that [facility] is not responsible for the loss or damage to any personal effects or valuables that are kept in the patients posession during their hospitalization. The following Patient Care Plans were discussed with the PATIENT: Discharge Planning, PAIN MANAGEMENT, and POSTOP PAIN. DEBBIE ROLAND verbalizes understanding of Interdisciplinary Patient Education. Patient and/or family were informed about the Rapid Response Team and its purpose.
--- NOTE | 2019-05-07 01:20 | OPERATIVE REPORT ---
DATE OF SERVICE: 05/06/2019 PREOPERATIVE DIAGNOSES: Cervical intraepithelial neoplasia 2 and cervical intraepithelial neoplasia 3. POSTOPERATIVE DIAGNOSES: Cervical intraepithelial neoplasia 2 and cervical intraepithelial neoplasia 3 with abnormal appearing appendix consistent with appendicitis. OPERATIVE PROCEDURE: Total laparoscopic hysterectomy with bilateral salpingectomies as well as appendectomy. OPERATIVE DESCRIPTION: With the patient in the supine position under satisfactory general anesthesia, she was repositioned in the dorsal lithotomy position in the [facility] and prepped and draped in the usual fashion for abdominal and vaginal surgery using robotic assistance. Weighted speculum placed in posterior fornix of vagina, cervix exposed and grasped anteriorly with single tooth tenaculum. Uterus sounded to 9 cm with uterine sound. Cervix was then serially dilated with Last dilators to accommodate a Elissa II manipulator, which was placed using a 6 mm x 8 cm uterine probe and a 30 mm colpotomy ring. Sutures of #1 Vicryl were placed at 3 and 9 o'clock position of the cervix to affix the uterus to the manipulator. The patient was brought in low dorsal lithotomy position and the abdomen exposed. An 8 mm incision was made 4 cm superior to the umbilicus. Veress needle was placed through that incision into the abdominal cavity. Correct placement confirmed with water drop test and then . The abdomen was insufflated with 2.4 liters of carbon dioxide. The Veress needle was removed and replaced with an 8 mm laparoscopic port. The laparoscope was introduced. The patient's abdominal wall was transilluminated and 8 mm ports were placed 8 cm lateral to the umbilicus at the level between the umbilicus and the midline port. All three port sites were infiltrated with 0.25% Marcaine with epinephrine prior to incision and port placement. The patient was now placed in Trendelenburg allowing the bowel to spill out of the pelvis. The da Nabila column was advanced on the patient and docked. Operating instruments were placed in the right and left lateral ports and I retired to the da Nabila console. At the console using the vessel sealer on the right and a bipolar fenestrated grasper on the left, the pelvis was first examined. The ovaries were normal in appearance. The fallopian tubes showed evidence of tubal sterilization by the presence of Falope rings. The uterus was little bit mottled and had evidence of some small fibroids. Laparoscope was rotated. The appendix was identified. It was injected, consistent with appendicitis in its distal third. There were some tortuous fibrotic portions of the appendix as well. Decision was made to go ahead with appendectomy concurrent with the hysterectomy. The right fallopian tube was grasped and elevated using the vessel sealer. The mesosalpinx was clamped, cauterized and divided. This was continued stepwise across to the uteroovarian pedicle, which was then clamped, cauterized and divided also using the vessel sealer that was continued down across the broad ligaments and down onto the cardinal ligament. The same procedure was performed on the left, allowing for removal eventually both fallopian tubes and conservation of both ovaries. The anterior lower uterine segment peritoneum was exposed, placement of vessel sealer with a bipolar fenestrated grasper still on the left and a monopolar shear on the right. The anterior lower uterine segment peritoneum was divided, allowing the bladder to be dissected down off the lower uterine segment. Colpotomy incision was started at 12 o'clock position on the colpotomy ring. That incision was continued circumferentially until the entire colpotomy ring was exposed. The uterus with the fallopian tube still attached was removed through the vagina. The vaginal cuff was closed with a single suture of V-Loc barbed suture starting from the first angle continued all the way across the vaginal cuff and then back across the peritoneum repair. Care was taken to ensure inclusion of the uterine vessel pedicles with the angle stitches. The attention was now turned to the appendix using the bipolar fenestrated grasper on the left and a monopolar shear on the right. The mesoappendix was perforated close to the base of the appendix and then the mesoappendix was divided with the cautery and sealing any blood vessels encountered in the process with the appendix completely skeletonized. The da Nabila portion of the procedure was halted. The da Nabila instruments were removed as was the column. Using the scope in the left lateral port, the umbilical port was replaced with a 12 mm port over instrument passer and then an Endo GI was placed through the umbilical port. The appendix was grasped through the right lateral port and elevated. The Endo GI was placed across the base of the appendix and the instrument was fired severing the appendix from its attachment, was brought out through the umbilical port in an Endobag. The stump of the appendix was copiously irrigated as was the pelvis. There was no bleeding. There was no remaining abnormal pathology. The stump of the appendix was then treated with several drops of Betadine solution and the procedure was terminated. The operative instruments were removed under direct vision as were the ports. There was no bleeding from the port sites. The abdomen was evacuated and insufflating gas in the process of removing the ports. The skin incisions were stapled after closing the fascia at the supraumbilical incision with a [id number] suture of 2-0 Vicryl. Speculum replaced in the vagina. Vaginal cuff was examined and found completely intact and completely hemostatic. Sponge and needle counts were correct at the end of procedure. Estimated blood loss for the procedure was minimal. The patient tolerated the procedure well and was transferred to the recovery room in stable condition with plans for discharge home tomorrow. During the course of the procedure, the ureters were identified prior to initiating any operative intervention and then they were visualized throughout the course of the case and then after completion of all procedures, the ureters were still normal diameter and peristalsing normally. Job ID: [id number] DocumentID: [id number] Dictated Date: 05/06/2019 14:47:45 Machine Feeder Date: 05/07/2019 01:19:26 Dictated By: JESSICA MARTIN MD
[2019-05-07 05:25] VITALS: BP 124/60
[2019-05-07] MEDS: KETOROLAC 30 MG/ML VIAL IVP SCH ×2 (05:26→09:15)
[2019-05-07 08:00] VITALS: BP 134/79
--- NOTE | 2019-05-07 08:07 | Progress Note ---
Standard Progress Note Progress Notes/Assess & Plan Date Seen by a Provider: May 07, 2019 Time Seen by a Provider: 08:05 Progress/Assessment & Plan This patient is without complaint. She is ambulating, voiding, tolerating oral intake well, has good pain control. Patient denies chest pain, denies shortness of breath, denies nausea vomiting, denies headache. Vital Signs Date Time Temp Pulse Resp B/P (MAP) Pulse Ox O2 Delivery O2 Flow Rate FiO2 05/07/19 05:25 98.9 69 18 124/60 (81) 97 05/06/19 23:35 98.6 69 18 122/66 (84) 97 05/06/19 20:40 98.5 90 18 114/60 (78) 97 05/06/19 16:15 98.1 65 18 129/78 (95) 99 Room Air 05/06/19 15:50 Room Air 05/06/19 15:50 97.8 18 99 Room Air 05/06/19 15:40 18 99 Room Air 05/06/19 15:35 Room Air 05/06/19 15:30 18 100 Room Air 05/06/19 15:20 OxyMask 6 05/06/19 15:20 18 100 OxyMask 6 05/06/19 15:10 18 100 OxyMask 6 05/06/19 15:05 OxyMask 6 05/06/19 15:00 18 100 OxyMask 6 05/06/19 14:51 OxyMask 6 05/06/19 14:51 97.6 12 100 OxyMask 6 05/06/19 11:55 98.0 76 16 131/73 (92) 97 Room Air I & O 05/07/19 07:00 Intake Total 3710 ml Output Total 2075 ml Balance 1635 ml Vital signs are stable. Patient is afebrile. The abdomen is benign. The surgical dressings are clean dry and intact. Extremities show no clubbing or cyanosis. There is no Homans sign. Assessment and plan postoperative day number 1 doing well. Plan is for discharge home with follow-up in clinic Final Diagnosis CHIVO-2/CHIVO-3 JESSICA MARTIN MD May 07, 2019 08:07
[2019-05-07] MEDS ORDERED: DOCUSATE SODIUM 100 MG (COLACE) CAP PO SCH (09:00)
[2019-05-07 09:55] VITALS: BP 134/79
--- NOTE | 2019-05-07 10:51 | Anesthesia-General Post-Op ---
General Patient Condition Mental Status/LOC: Same as Preop Cardiovascular: Satisfactory Nausea/Vomiting: Absent Respiratory: Satisfactory Pain: Controlled Complications: Absent Post Op Complications Complications None Follow Up Care/Instructions Patient Instructions None needed. Anesthesia/Patient Condition Patient Condition Patient was seen this morning by RUSTY Garcia and is now already discharged to home without complaints. SACHA MADERA DO May 07, 2019 10:51
[2019-05-07] MEDS ORDERED: IBUPROFEN 800 MG (MOTRIN) TAB PO SCH (18:00)
== END 2019-05-07 09:55 | disposition home or self-care (01) ==
LOC: SDC 11:18 → WS 15:50 → SDC 05-07 09:55
PROVIDERS: ATTEND Obstetrics & Gynecology
DX: D06.9 Carcinoma in situ of cervix, unspecified (principal); N83.8 Other noninflammatory disorders of ovary, fallopian tube and broad ligament; K38.0 Hyperplasia of appendix; K21.9 Gastro-esophageal reflux disease without esophagitis
CPT/HCPCS: 36415; 84703; 86850; 86900; 86901; 88304; 88307